=== PATIENT | female | born 1950 | race Hispanic/Latino ===

== ENCOUNTER 2018-01-17 19:08 | Inpatient (IN) | payer MEDICARE, OTHER ==
--- NOTE | 2018-01-17 20:24 | ED PDOC ---
HPI:Nausea, Vomiting, Diarrhea Time Seen by Provider: 01/17/18 20:04 Chief Complaint (Nursing): GI Problem Chief Complaint (Provider): vomiting History Per: Patient History/Exam Limitations: no limitations Onset/Duration Of Symptoms: Days (x3) Current Symptoms Are (Timing): Still Present Additional Complaint(s): 67 year old female with pmHX of DM I, arrives to the emergency department with daughter for an evaluation of vomiting associated with nausea and tactile fever. Patient is currently on Augmentin and Floxin Otic for a left-sided ear infection ongoing for 3 days and had her ear flushed this morning by a doctor which provided some relief. She denies any further medical complaints. Patient reports taking Motrin/Tylenol for ear pain and wears hearing aids bilaterally. PMD: patient is visiting from [place]. Seen by [facility] for ear infection today Past Medical History Reviewed: Historical Data, Nursing Documentation, Vital Signs Vital Signs: Last Vital Signs Temp 98.6 F 01/17/18 19:38 Pulse 97 H 01/17/18 19:38 Resp 20 01/17/18 19:38 BP 136/81 01/17/18 19:38 Pulse Ox 100 01/17/18 19:38 - Medical History PMH: Diabetes (type I) - Surgical History Other surgeries: bilateral eyelids 12/15/17 - Family History Family History: States: Unknown Family Hx - Home Medications Home Medications: Ambulatory Orders Medication Instructions Recorded Amoxicillin/Clavulanate [Augmentin 875 mg PO BID 01/17/18 875 MG-125 MG Tab] Celecoxib [Celebrex] 200 mg PO BID 01/17/18 Citalopram Hydrobromide [Celexa] 20 mg PO DAILY 01/17/18 Hydrocodone/Acetaminophen 1 tab PO PRN PRN 01/17/18 [Hydrocodone-Acetamin 5-325 mg] Lisinopril [Zestril] 10 mg PO DAILY 01/17/18 Loratadine [Claritin] 10 mg PO DAILY 01/17/18 Ofloxacin Otic 0.3% [Floxin 0.3% 5 drop AU BID 01/17/18 Otic Soln] Simvastatin [Zocor] 20 mg PO DAILY 01/17/18 metFORMIN [glucOPHAGE] 500 mg PO BID 01/17/18 - Allergies Allergies/Adverse Reactions: Allergies Allergy/AdvReac Type Severity Reaction Status Date / Time cefprozil [From Cefzil] Allergy VOMITING Verified 01/17/18 19:38 streptomycin Allergy RASH Verified 01/17/18 19:38 Review of Systems ROS Statement: Except As Marked, All Systems Reviewed And Found Negative Constitutional: Positive for: Fever ENT: Positive for: Ear Pain (left) Gastrointestinal: Positive for: Nausea, Vomiting Physical Exam - Reviewed Nursing Documentation Reviewed: Yes Vital Signs Reviewed: Yes - Physical Exam Appears: Positive for: Non-toxic, No Acute Distress Head Exam: Positive for: ATRAUMATIC, NORMAL INSPECTION, NORMOCEPHALIC Skin: Positive for: Normal Color Eye Exam: Positive for: Normal appearance ENT: Positive for: TM Is/Are (blocked on left side), Other (left external canal edema with purulent discharge and tragal tenderness) Neck: Positive for: Normal Cardiovascular/Chest: Positive for: Regular Rate, Rhythm Respiratory: Positive for: Normal Breath Sounds Gastrointestinal/Abdominal: Positive for: Normal Exam, Soft. Negative for: Tenderness Extremity: Positive for: Normal ROM (upper/lower) Neurologic/Psych: Positive for: Alert (x3), Oriented - Laboratory Results Result Diagrams: 01/18/18 05:50 01/18/18 05:50 - ECG O2 Sat by Pulse Oximetry: 100 (RA) Pulse Ox Interpretation: Normal - Progress ED Course And Treament: Time: 2028 --Accucheck: 125 ml/dL Time: 2237 --CT orbits FINDINGS: Orbits: Normal. Globes are unremarkable. Sinuses: Slight mucosal thickening in the left maxillary sinus. No air-fluid levels. Bones/joints: No acute fracture. No bony erosion. No dislocation. Auditory system: There is swelling of the left external auditory canal wall with narrowing of the canal, suggesting otitis externa. There is opacification of the left mastoid air cells and in the left mid ear cavity, suggesting mastoiditis and otitis media. IMPRESSION: There is swelling of the left external auditory canal wall with narrowing of the canal, suggesting otitis externa. There is opacification of the left mastoid air cells and in the left mid ear cavity, suggesting mastoiditis and otitis media. Medical Decision Making Medical Decision Making: Initial Impression: Ear pain; Vomiting Differential Diagnosis: Acute otitis externa r/o mastoiditis; side effect of Augmentin; gastritis Initial Plan: * CT mastoids without contrast * CMP * Lipase * CBC * Accucheck * NS 1,000ml IV per 1,000mls/hr * Zofran 4mg IV * [address] facial report. [address] Ivy the findings. Recommends admission for malignant otitis externa. Recommends IV abx, ID consult, MRI of the canal, and bone spect study. [address] Lott for admission. Scribe Attestation: Documented by Brianda Wood, acting as a scribe for Ed Young MD Provider Scribe Attestation: All medical record entries made by the Scribe were at my direction and personally dictated by me. I have reviewed the chart and agree that the record accurately reflects my personal performance of the history, physical exam, medical decision making, and the department course for this patient. I have also personally directed, reviewed, and agree with the discharge instructions and disposition. Disposition - Clinical Impression Clinical Impression: Malignant otitis externa of left ear - Patient ED Disposition Is Patient to be Admitted: Yes Discussed With : Ras Lott Doctor Will See Patient In The: Hospital Counseled Patient/Family Regarding: Studies Performed, Diagnosis - Disposition Disposition Time: 23:00 Condition: FAIR - Pt Status Changed To: Hospital Disposition Of: Inpatient - Admit Certification Admit to Inpatient:: After my assessment, the patient will require hospitalization for at least two midnights. This is because of the severity of symptoms shown, intensity of services needed, and/or the medical risk in this patient being treated as an outpatient. - POA Present On Arrival: None
[2018-01-17] MEDS ORDERED: Sodium Chloride 0.9% 1,000 ML IV STA (20:26)
[2018-01-17 21:01] LABS: BASO # 0.1 K/uL (0.0-0.2); BASO % 0.4 % (0.0-2.0); EOS # 0.7 K/uL (0.0-0.7); EOS % 4.6 % (0.0-4.0); HEMOGLOBIN 14.1 g/dL (12.0-16.0); LYMPH # 1.4 K/uL (1.0-4.3); LYMPH % 9.7 % (20.0-40.0); MEAN CELL VOLUME 92.1 fl (81.0-99.0); MEAN CORPUSCULAR HEMOGLOBIN 30.8 pg (27.0-31.0); MEAN CORPUSCULAR HGB CONC 33.4 g/dL (33.0-37.0); MEAN PLATELET VOLUME 8.8 fl (7.2-11.7); MONO # 1.1 K/uL (0.0-0.8); MONO % 7.3 % (0.0-10.0); NEUT # 11.5 K/uL (1.8-7.0); PLATELET COUNT 309 K/uL (130-400); RBC 4.57 Mil/uL (3.80-5.20); RED CELL DISTRIBUTION WIDTH 12.9 % (11.5-14.5); WHITE BLOOD COUNT 14.8 K/uL (4.8-10.8)
[2018-01-17 21:14] LABS: ALB/GLOB RATIO 1.4 (1.0-2.1); ALBUMIN 4.9 g/dL (3.5-5.0); ALT/SGPT 29 U/L (9-52); AST/SGOT 26 U/L (14-36); BLOOD UREA NITROGEN 22 mg/dl (7-17); GFR NON-AFRICAN AMERICAN > 60; LIPASE 74 U/L (23-300)
[2018-01-17 22:27] LABS: BANDS 2 % (0-2); EOSINOPHIL 4 % (0-7); LYMPHOCYTE 11 % (20-50); MONOCYTE 7 % (0-10); NEUTROPHIL 76 % (42-75); PLATELET ESTIMATE NORMAL (NORMAL); TOTAL CELLS COUNTED 100
[2018-01-17 22:28] LABS: HYPOCHROMIC SLIGHT; TOXIC GRANULATION PRESENT
[2018-01-17] MEDS ORDERED: Ciprofloxacin 400mg/200ml D5W 400 MG/200 ML BAG IVPB STA (22:45)
[2018-01-17] MEDS ORDERED: Piperacillin/Tazobact 4.5 GM in Sodium Chloride 0.9% 100 ML IVPB STA (22:47)
[2018-01-17] MEDS ORDERED: Piperacillin/Tazobact 3.375 gm Inj IVPB ONE (22:56)
[2018-01-18] MEDS ORDERED: ACETAMINOPHEN PO PRN (00:50)
[2018-01-18] MEDS ORDERED: HYDROCODONE PO PRN (00:50)
[2018-01-18] MEDS: Sodium Chloride 0.9% 1,000 ML IV SCH ×3 (01:22→21:00)
[2018-01-18] MEDS: Piperacillin/Tazobact 3.375 GM in Sodium Chloride 0.9% 100 ML IVPB SCH ×3 (05:00→16:34)
[2018-01-18] MEDS: Oxycodone/Acetaminophen 5/325 mg Tab PO PRN ×2 (05:15→23:37)
[2018-01-18 06:46] LABS: BASO % 0.1 % (0.0-2.0); EOS # 0.9 K/uL (0.0-0.7); HEMOGLOBIN 12.3 g/dL (12.0-16.0); LYMPH # 0.8 K/uL (1.0-4.3); LYMPH % 9.7 % (20.0-40.0); MEAN CELL VOLUME 91.4 fl (81.0-99.0); MEAN CORPUSCULAR HEMOGLOBIN 31.1 pg (27.0-31.0); MEAN PLATELET VOLUME 8.8 fl (7.2-11.7); MONO # 0.4 K/uL (0.0-0.8); MONO % 5.7 % (0.0-10.0); NEUT # 5.8 K/uL (1.8-7.0); NEUT % 73.5 % (50.0-75.0); RBC 3.95 Mil/uL (3.80-5.20); RED CELL DISTRIBUTION WIDTH 12.7 % (11.5-14.5); WHITE BLOOD COUNT 7.9 K/uL (4.8-10.8)
[2018-01-18 07:14] LABS: ALB/GLOB RATIO 1.4 (1.0-2.1); ALBUMIN 3.8 g/dL (3.5-5.0); ALT/SGPT 28 U/L (9-52); AST/SGOT 20 U/L (14-36); BLOOD UREA NITROGEN 17 mg/dl (7-17); CALCIUM 8.6 mg/dL (8.4-10.2); GFR NON-AFRICAN AMERICAN > 60
[2018-01-18] MEDS: OFLOXACIN 0.3% AU SCH ×2 (08:44→16:31)
[2018-01-18] MEDS: Insulin Lispro (humaLOG) 100 Units/ml Inj SC SCH ×4 (08:46→22:19)
[2018-01-18] MEDS: Enoxaparin 40 mg Syringe SC SCH (08:47)
[2018-01-18] MEDS: Ciprofloxacin 400mg/200ml D5W 400 MG/200 ML BAG IVPB SCH ×2 (10:29→20:15)
[2018-01-18] MEDS ORDERED: Gadodiamide 287 MG/ML VIAL (15ML) IV ONE (10:52)
--- NOTE | 2018-01-18 10:55 | CT ---
PROCEDURE: CT scan of the temporal bones without intravenous contrast INDICATION: TECHNIQUE: High resolution axial images of the temporal bones were obtained without intravenous contrast. Coronal and sagittal reformats were generated. This CT exam was performed using one or more of the following dose reduction techniques: Automated exposure control, adjustment of the mA and/or kV according to patient size, and/or use of iterative reconstruction technique. Radiation dose: Total exam DLP = 677.97 mGy-cm. COMPARISON: None. FINDINGS: RIGHT TEMPORAL BONE: External Auditory Canal: The external auditory canal is normal and well aerated. Middle Ear: The tympanic membrane is normal. The middle ear cavity is well aerated. The ossicles are normally formed. The scutum is sharp. There is no dehiscence of the tegmen tympani. The facial nerve follows a normal course. Inner Ear: The cochlea and semicircular canals are normal. Superior and lateral semicircular canals are well covered. The vestibular aqueduct is normal. IAC: The IAC is normal without gross evidence for mass. Mastoids: The mastoid air cells are normally developed and well aerated. The visualized paranasal sinuses and orbits are normal. LEFT TEMPORAL BONE: External Auditory Canal: There is extensive abnormal soft-tissue in the lateral external auditory canal and circumferential soft tissue in the medial external auditory canal with narrowing of the canal lumen. Middle Ear: The tympanic membrane is normal. There is abnormal soft tissue in the middle ear cavity. The ossicles are normally formed. The scutum is sharp. There is no dehiscence of the tegmen tympani. The facial nerve follows a normal course. Inner Ear: The cochlea and semicircular canals are normal. Superior and lateral semicircular canals are well covered. The vestibular aqueduct is normal. IAC: The IAC is normal without gross evidence for mass. Mastoids: The mastoid air cells are normally developed. There is moderate fluid in the mastoid air cells with preservation of the inter mastoid septations. There is a small retention cyst/polyp in the left anterior inferior maxillary sinus. The remaining visualized paranasal sinuses and orbits are normal. IMPRESSION: 1. Findings are compatible with acute and/ left mastoiditis and otitis media. 2. Extensive abnormal soft-tissue completely opacifying the left external auditory canal laterally with severe narrowing of the lumen medially concerning for otitis externa. A preliminary report was provided by [email or web address].
--- NOTE | 2018-01-18 12:49 | MRI ---
Date of service: 01/18/2018 PROCEDURE: MRI OF THE BRAIN AND INTERNAL AUDITORY CANALS WITH AND WITHOUT CONTRAST. HISTORY: left otitis externa COMPARISON: Noncontrast CT from 01/17/2018 TECHNIQUE: Multiplanar, multisequence MR images of the brain and posterior fossa were obtained with and without contrast. High-resolution posterior fossa and images through the cerebellopontine angle and internal auditory canals included: Axial 3-D fiesta, axial T1 pre-and postcontrast enhanced and coronal T1 pre-and postcontrast enhanced. 15 cc Omniscan was injected intravenously. FINDINGS: IAC/CP ANGLES: INTERNAL AUDITORY CANALS: No mass or abnormal enhancement. CEREBELLOPONTINE ANGLES: No mass or abnormal enhancement. INNER EAR STRUCTURES: Normally formed cochlea and semicircular canals. No signal abnormality or abnormal enhancement in the membranous labyrinth of the cochlea, vestibule or the semicircular canals. BRAINSTEM: There is a partially empty sella, otherwise the midline sagittal structures are normal. MASTOIDS: The right mastoid air cells are clear. There is enhancing fluid/soft tissue in the left mastoid air cells. There is also enhancement in the deep soft tissues overlying the left mastoid. There is circumferential enhancing soft tissue in the left external auditory canal with severe narrowing of the canal lumen. OTHER: No other notable findings. BRAIN (LIMITED): There are mild chronic microangiopathic changes. There is no mass, mass effect or abnormal extra-axial fluid collection. There is no territorial infarction. There is a partially empty sella. There is mild age-related global parenchymal volume loss and proportionate enlargement of the ventricles and cortical sulci. There are normal signal voids in the larger intracranial arteries. PARANASAL SINUSES: Clear IMPRESSION: 1. Acute and/ left mastoiditis. 2. Abnormal enhancing circumferential soft tissue in the left external auditory canal with severe narrowing of the canal lumen. Findings are most compatible with acute otitis externa. Underlying neoplasm cannot be entirely excluded. Follow-up after medical management is recommended to ensure complete resolution. 3. Normal MRI appearance of the right mastoid air cells and external auditory canal. 4. Mild chronic microangiopathic changes and mild age-related global parenchymal volume loss.
--- NOTE | 2018-01-18 15:13 | NM ---
Date of service: 01/17/2018 PROCEDURE: Three-phase bone scan Supplemental 3D plana SPECT imaging. HISTORY: Left mastoid inner ear canal infection COMPARISON: January 17, 2018. CT temporal bones. January 18, 2018. MRI brain and internal auditory canals Summary of findings on the comparison examination: Acute left mastoiditis. TECHNIQUE: Following administration of 27.2 miCu of Tc MDP three-phase bone scan attention left base of skull/mastoid air cells performed. FINDINGS: Flow component: Normal with symmetrical flow to the skullbase bilaterally. Blood pool component: Vague increased accumulation of radionuclide in the region of the external auditory canal and mastoid air cells. Delayed images at 3:00: Retention of radionuclide left temporal bone Other findings: None. IMPRESSION: 1. Highly Suspicious findings for acute osseous process left mastoid region. The absence of asymmetric flow on the angiographic component is more likely to reflect imaging capabilities of this region of the skullbase. 2. Accumulation of radionuclide within adjacent soft tissues consistent with external otitis.
--- NOTE | 2018-01-18 22:29 | CON ---
DATE: 01/17/2018 REASON FOR CONSULT: Malignant otitis externa, possible. REQUESTING PHYSICIAN: Ras Lott MD HISTORY OF PRESENT ILLNESS: This is a 67-year-old female with a 4-day history of increasing ear pain on the left, which is constant, [id number] in intensity for four days. She also had hearing loss for one day, constant and moderate in intensity on the left. PAST MEDICAL HISTORY: As noted in the chart by me. MEDICATIONS: As noted in the chart by me. ALLERGIES: NO KNOWN DRUG ALLERGIES. PHYSICAL EXAMINATION: HEAD: Atraumatic and normocephalic. FACE: Good facial movements bilaterally. CONSTITUTIONAL: Well fed, well nourished. COMMUNICATION: Communicates well and appropriately. EXTERNAL NOSE AND EARS: No masses. No lesions. No erythema. No edema. INTERNAL NOSE: Deviated septum. No masses. No lesions. No erythema. No edema. ORAL CAVITY AND OROPHARYNX: No masses. No lesions. No erythema. No edema. LIPS AND GUMS: No masses. No lesions. No erythema. No edema. EARS: Left ear canal is closed due to edema. Therefore, the TM cannot be visualized. NECK: Supple. THYROID: No thyromegaly. No goiter. LYMPH NODES: No lymphadenopathy of the neck. NEUROLOGIC: The patient is alert, awake, and oriented x3. ASSESSMENT: 1. Possible malignant otitis externa. 2. Deviated septum. PLAN: The patient should be on double coverage for pseudomonas. Recommend Infectious Disease followup. Awaiting bone scan and MRI results. Erickson Ivy MD [facility]
[2018-01-19] MEDS: Piperacillin/Tazobact 3.375 GM in Sodium Chloride 0.9% 100 ML IVPB SCH ×5 (00:20→23:13)
--- NOTE | 2018-01-19 02:54 | CON ---
DATE: 01/18/2018 INFECTIOUS DISEASE CONSULT HISTORY OF PRESENT ILLNESS: The patient is a 67-year-old female who has a history of diabetes who was admitted via the emergency room. She came with her daughter for evaluation of vomiting. She thinks, states associated with taking amoxicillin which was given to her by a primary care physician. She is also on Floxin Otic. She was given this medication for left-sided ear infection, which she has had for apparently three to four days. The doctor who had seen her also flushed her ears and said helped somewhat, but she has come to the hospital with fever and some chills and severe ear pain. The patient is apparently visiting the daughter from the [place]. The patient gives history of allergy to streptomycin. MEDICATIONS: Include Celebrex, Celexa, Zestril, Claritin, Zocor, and metformin. ALLERGIES: SHE IS ALLERGIC TO AGAIN I SAID CEFZIL ALSO AND STREPTOMYCIN. PHYSICAL EXAMINATION: GENERAL: She is alert, cooperative, and quite pleasant. She states her ear feels better since being on present medication which is Zosyn, likely meaning that her stomach could not tolerate the Augmentin rather than acute IgM allergic reaction. Has positive ear pain, but again as I stated improved. HEENT: Other than as her left outer ear is markedly erythematous, painful to touch. She also has definite asymmetry of the face, the left facial area being swollen and noted on when she tries to smile. LUNGS: Clear. HEART: Regular sinus rhythm. ABDOMEN: Soft. Positive bowel sounds. EXTREMITIES: No CCE. CT scan showed sinuses to have a slight mucosal thickening in her left maxillary sinus. No air fluid levels. No fraction, no erosion. There is swelling of the left external auditory canal with narrowing of the canal suggesting otitis externa. There is opacification of the left mastoid air cells and in the left mid ear cavity suggesting mastoiditis and otitis media. LABORATORY DATA: No micro available. Creatinine is 0.7, GFR is greater than 60, BUN is 17. White count on 01/17/2018 was 14.8, today it is 7.9. Minimal left shift on 01/17/2018. Her MRI which was done today showed acute left mastoiditis, abnormal enhancing soft tissue in the left external auditory canal with severe narrowing of the canal lumen. Findings are most complete with acute otitis externa. Underlying neoplasm cannot be entirely ruled out. Should have followup. Normal MRI appearance of the right mastoid air cells and external auditory canal. IMPRESSION AND PLAN: At this point in time, the patient has responded somewhat to Zosyn and Cipro. I am concerned that we do not have methicillin-resistant Staphylococcus aureus covered and/or methicillin-susceptible Staphylococcus aureus covered. So, I have added vancomycin to the treatment. We will consider stopping Zosyn, pending tomorrow's findings. The patient is to be seen also by ENT. Kevan Villalta MD
[2018-01-19] MEDS: Sodium Chloride 0.9% 1,000 ML IV SCH (03:48)
[2018-01-19] MEDS: Enoxaparin 40 mg Syringe SC SCH (08:30)
[2018-01-19] MEDS: Insulin Lispro (humaLOG) 100 Units/ml Inj SC SCH ×4 (08:31→22:02)
[2018-01-19] MEDS: OFLOXACIN 0.3% AU SCH ×2 (08:32→16:24)
[2018-01-19] MEDS: Ciprofloxacin 400mg/200ml D5W 400 MG/200 ML BAG IVPB SCH ×2 (08:33→20:11)
[2018-01-19] MEDS: DESONIDE 0.05% TOP SCH (21:18)
[2018-01-19] MEDS: Oxycodone/Acetaminophen 5/325 mg Tab PO PRN (22:43)
[2018-01-20] MEDS: Piperacillin/Tazobact 3.375 GM in Sodium Chloride 0.9% 100 ML IVPB SCH ×3 (04:44→16:26)
[2018-01-20 08:08] VITALS: O2SAT 98
[2018-01-20] MEDS: OFLOXACIN 0.3% AU SCH ×2 (08:34→16:32)
[2018-01-20] MEDS: Insulin Lispro (humaLOG) 100 Units/ml Inj SC SCH ×4 (08:35→22:07)
[2018-01-20] MEDS: Enoxaparin 40 mg Syringe SC SCH (08:35)
[2018-01-20] MEDS: DESONIDE 0.05% TOP SCH ×3 (08:36→16:32)
[2018-01-20] MEDS: Ciprofloxacin 400mg/200ml D5W 400 MG/200 ML BAG IVPB SCH ×2 (09:37→20:43)
--- NOTE | 2018-01-20 09:39 | CP.PCM.HP ---
History of Present Illness - History of Present Illness History of Present Illness: CC: Vomiting/Nausea/Fever and Left Ear Pain History of Present Illness: A 67 year old female with PMHX of DM II arrives to the emergency department with daughter for an evaluation of vomiting associated with nausea and tactile fever. Patient is currently on Augmentin and Floxin Otic for a left-sided ear infection ongoing for 3 days and had her ear flushed this morning by a doctor which provided some relief. She denies any further medical complaints. Patient reports taking Motrin/Tylenol for ear pain and wears hearing aids bilaterally. Failed outpatient treatment for Let Ear Infection. Present on Admission - Present on Admission Any Indicators Present on Admission: Yes History of Uncontrolled Diabetes: Yes Review of Systems - Review of Systems All systems: reviewed and no additional remarkable complaints except - Constitutional Constitutional: Fever - EENT Ears: As Per HPI, Decreased Hearing (Left ear), Ear Pain Past Patient History - Past Medical History & Family History Past Medical History?: Yes Past Family History: Reviewed and not pertinent - Past Social History Smoking Status: Unknown If Ever Smoked Alcohol: None Drugs: Denies - CARDIAC Hx Hypercholesterolemia: Yes Hx Hypertension: Yes - PULMONARY Hx Respiratory Disorders: No - NEUROLOGICAL Hx Neurological Disorder: No - HEENT Other/Comment: hearing impairment uses hearing aids - RENAL Hx Chronic Kidney Disease: No - ENDOCRINE/METABOLIC Hx Diabetes Mellitus Type 2: Yes - HEMATOLOGICAL/ONCOLOGICAL Hx Blood Disorders: No Hx AIDS: No Hx Human Immunodeficiency Virus (HIV): No - INTEGUMENTARY Hx Dermatological Problems: No - MUSCULOSKELETAL/RHEUMATOLOGICAL Hx Arthritis: Yes - GASTROINTESTINAL Hx Gastrointestinal Disorders: No - GENITOURINARY/GYNECOLOGICAL Hx Genitourinary Disorders: No - PSYCHIATRIC Hx Substance Use: No - SURGICAL HISTORY Hx Surgeries: Yes Other/Comment: becky eyelids surgery - ANESTHESIA Hx Anesthesia: Yes Hx Anesthesia Reactions: No Hx Malignant Hyperthermia: No Meds Allergies/Adverse Reactions: Allergies Allergy/AdvReac Type Severity Reaction Status Date / Time cefprozil [From Cefzil] Allergy VOMITING Verified 01/17/18 19:38 streptomycin Allergy RASH Verified 01/17/18 19:38 Physical Exam - Constitutional Appears: Well, No Acute Distress - Head Exam Head Exam: ATRAUMATIC, NORMAL INSPECTION, NORMOCEPHALIC - Eye Exam Eye Exam: EOMI, Normal appearance, PERRL Pupil Exam: NORMAL ACCOMODATION, PERRL - ENT Exam ENT Exam: Mucous Membranes Moist, Normal Exam - Neck Exam Neck exam: Positive for: Full Rom, Normal Inspection - Respiratory Exam Respiratory Exam: Clear to Auscultation Bilateral, NORMAL BREATHING PATTERN - Cardiovascular Exam Cardiovascular Exam: REGULAR RHYTHM, +S1, +S2 - GI/Abdominal Exam GI & Abdominal Exam: Normal Bowel Sounds, Soft. absent: Tenderness - Extremities Exam Extremities exam: Positive for: full ROM, normal capillary refill, normal inspection - Back Exam Back exam: FULL ROM, NORMAL INSPECTION - Neurological Exam Neurological exam: Alert, CN II-XII Intact, Normal Gait, Oriented x3, Reflexes Normal - Psychiatric Exam Psychiatric exam: Normal Affect, Normal Mood - Skin Skin Exam: Dry, Intact, Normal Color, Warm Results - Vital Signs Recent Vital Signs: Last Vital Signs Temp 98.2 F 01/20/18 08:07 Pulse 74 01/20/18 08:32 Resp 20 01/20/18 08:07 BP 107/57 L 01/20/18 08:32 Pulse Ox 98 01/20/18 08:07 - Labs Result Diagrams: 01/18/18 05:50 01/18/18 05:50 Labs: Laboratory Results - last 24 hr 01/19/18 01/19/18 01/19/18 10:49 15:31 21:27 POC Glucose (mg/dL) 123 H 144 H 165 H 01/20/18 05:40 POC Glucose (mg/dL) 94 - Impressions Impression: CT scan of the temporal bones without intravenous contrast INDICATION: TECHNIQUE: High resolution axial images of the temporal bones were obtained without intravenous contrast. Coronal and sagittal reformats were generated. This CT exam was performed using one or more of the following dose reduction techniques: Automated exposure control, adjustment of the mA and/or kV according to patient size, and/or use of iterative reconstruction technique. Radiation dose: Total exam DLP = 677.97 mGy-cm. COMPARISON: None. FINDINGS: RIGHT TEMPORAL BONE: External Auditory Canal: The external auditory canal is normal and well aerated. Middle Ear: The tympanic membrane is normal. The middle ear cavity is well aerated. The ossicles are normally formed. The scutum is sharp. There is no dehiscence of the tegmen tympani. The facial nerve follows a normal course. Inner Ear: The cochlea and semicircular canals are normal. Superior and lateral semicircular canals are well covered. The vestibular aqueduct is normal. IAC: The IAC is normal without gross evidence for mass. Mastoids: The mastoid air cells are normally developed and well aerated. The visualized paranasal sinuses and orbits are normal. LEFT TEMPORAL BONE: External Auditory Canal: There is extensive abnormal soft- tissue in the lateral external auditory canal and circumferential soft tissue in the medial external auditory canal with narrowing of the canal lumen. Middle Ear: The tympanic membrane is normal. There is abnormal soft tissue in the middle ear cavity. The ossicles are normally formed. The scutum is sharp. There is no dehiscence of the tegmen tympani. The facial nerve follows a normal course. Inner Ear: The cochlea and semicircular canals are normal. Superior and lateral semicircular canals are well covered. The vestibular aqueduct is normal. IAC: The IAC is normal without gross evidence for mass. Mastoids: The mastoid air cells are normally developed. There is moderate fluid in the mastoid air cells with preservation of the inter mastoid septations. There is a small retention cyst/polyp in the left anterior inferior maxillary sinus. The remaining visualized paranasal sinuses and orbits are normal. IMPRESSION: 1. Findings are compatible with acute and/ left mastoiditis and otitis media. 2. Extensive abnormal soft-tissue completely opacifying the left external auditory canal laterally with severe narrowing of the lumen medially concerning for otitis externa. A preliminary report was provided by [facility] services. - Imaging and Cardiology MRI Orbit/face/left Ear: Status: Report reviewed by me Additional comment: MRI OF THE BRAIN AND INTERNAL AUDITORY CANALS WITH AND WITHOUT CONTRAST. HISTORY: left otitis externa COMPARISON: Noncontrast CT from 01/17/2018 TECHNIQUE: Multiplanar, multisequence MR images of the brain and posterior fossa were obtained with and without contrast. High-resolution posterior fossa and images through the cerebellopontine angle and internal auditory canals included: Axial 3-D fiesta, axial T1 pre-and postcontrast enhanced and coronal T1 pre-and postcontrast enhanced. 15 cc Omniscan was injected intravenously. FINDINGS: IAC/CP ANGLES: INTERNAL AUDITORY CANALS: No mass or abnormal enhancement. CEREBELLOPONTINE ANGLES: No mass or abnormal enhancement. INNER EAR STRUCTURES: Normally formed cochlea and semicircular canals. No signal abnormality or abnormal enhancement in the membranous labyrinth of the cochlea, vestibule or the semicircular canals. BRAINSTEM: There is a partially empty sella, otherwise the midline sagittal structures are normal. MASTOIDS: The right mastoid air cells are clear. There is enhancing fluid/soft tissue in the left mastoid air cells. There is also enhancement in the deep soft tissues overlying the left mastoid. There is circumferential enhancing soft tissue in the left external auditory canal with severe narrowing of the canal lumen. OTHER: No other notable findings. BRAIN (LIMITED): There are mild chronic microangiopathic changes. There is no mass, mass effect or abnormal extra-axial fluid collection. There is no territorial infarction. There is a partially empty sella. There is mild age-related global parenchymal volume loss and proportionate enlargement of the ventricles and cortical sulci. There are normal signal voids in the larger intracranial arteries. PARANASAL SINUSES: Clear IMPRESSION: 1. Acute and/ left mastoiditis. 2. Abnormal enhancing circumferential soft tissue in the left external auditory canal with severe narrowing of the canal lumen. Findings are most compatible with acute otitis externa. Underlying neoplasm cannot be entirely excluded. Follow-up after medical management is recommended to ensure complete resolution. 3. Normal MRI appearance of the right mastoid air cells and external auditory canal. 4. Mild chronic microangiopathic changes and mild age-related global parenchymal volume loss. Assessment & Plan (1) Malignant otitis externa of left ear Assessment and Plan: Acute Mastoiditis, No Collection IVF IV Zosyn and Vancomycin Ofloxacin Blood Culture ENT on Board ID Consult Pain Medication PRN Status: Acute Priority: High (2) Diabetes mellitus with hyperglycemia Status: Acute (3) Hypotension (arterial) Status: Chronic Priority: Low
--- NOTE | 2018-01-20 09:40 | CP.PCM.PN ---
Subjective - Date & Time of Evaluation Date of Evaluation: 01/19/18 Time of Evaluation: 13:45 - Subjective Subjective: Seen and examined at the bed side. No new complaint. No fever or chills. Objective - Vital Signs/Intake and Output Vital Signs (last 24 hours): Temp Pulse Resp BP Pulse Ox 98.2 F 74 20 107/57 L 98 01/20/18 08:07 01/20/18 08:32 01/20/18 08:07 01/20/18 08:32 01/20/18 08:07 - Medications Medications: Current Medications Atorvastatin Calcium (Lipitor) 10 mg PO DAILY [facility] Last Admin: 01/20/18 08:35 Dose: 10 mg Celecoxib (Celebrex) 200 mg PO BID [facility] Last Admin: 01/20/18 08:31 Dose: 200 mg Citalopram Hydrobromide (Celexa) 20 mg PO DAILY [facility] Last Admin: 01/20/18 08:31 Dose: 20 mg Enoxaparin Sodium (Lovenox) 40 mg SC DAILY [facility] PRN Reason: Protocol Last Admin: 01/20/18 08:35 Dose: 40 mg Home Med (Patient's Own Medication) 1 unit TOP TID [facility] Last Admin: 01/20/18 08:36 Dose: 1 unit Ciprofloxacin (Cipro 400mg/200ml Dsw) 400 mg in 200 mls @ 200 mls/hr IVPB Q12 [facility] PRN Reason: Protocol Last Admin: 01/20/18 09:37 Dose: 200 mls/hr Piperacillin Sod/Tazobactam (Sod 3.375 gm/ Sodium Chloride) 100 mls @ 100 mls/ hr IVPB Q6 [facility] PRN Reason: Protocol Last Admin: 01/20/18 09:36 Dose: 100 mls/hr Vancomycin HCl 1 gm/ Sodium (Chloride) 250 mls @ 166.667 mls/hr IVPB Q12 [facility] PRN Reason: Protocol Last Admin: 01/20/18 08:33 Dose: 166.667 mls/hr Ibuprofen (Motrin Tab) 600 mg PO Q6 PRN PRN Reason: Pain, moderate (4-7) Last Admin: 01/18/18 10:29 Dose: 600 mg Insulin Human Lispro (Humalog) 0 units SC ACHS [facility] PRN Reason: Protocol Last Admin: 01/20/18 08:35 Dose: Not Given Lisinopril (Zestril) 10 mg PO DAILY [facility] Last Admin: 01/20/18 08:32 Dose: 10 mg Loratadine (Claritin) 10 mg PO DAILY [facility] Last Admin: 01/20/18 08:34 Dose: 10 mg Ofloxacin (Floxin 0.3% Otic Soln) 5 drop AU BID [facility] Last Admin: 01/20/18 08:34 Dose: 5 drop Ondansetron HCl (Zofran Inj) 4 mg IVP Q6 PRN PRN Reason: Nausea/Vomiting Oxycodone/Acetaminophen (Percocet 5/325 Mg Tab) 1 tab PO Q6 PRN PRN Reason: Pain, moderate (4-7) Stop: 01/21/18 01:04 Last Admin: 01/19/18 22:43 Dose: 1 tab - Labs Labs: 01/18/18 05:50 01/18/18 05:50 - Constitutional Appears: No Acute Distress - Head Exam Head Exam: ATRAUMATIC, NORMAL INSPECTION, NORMOCEPHALIC - Eye Exam Eye Exam: EOMI, Normal appearance, PERRL Pupil Exam: NORMAL ACCOMODATION, PERRL - Neck Exam Neck Exam: Full ROM, Normal Inspection. absent: Lymphadenopathy - Respiratory Exam Respiratory Exam: Clear to Ausculation Bilateral, NORMAL BREATHING PATTERN - Cardiovascular Exam Cardiovascular Exam: REGULAR RHYTHM, +S1, +S2. absent: Murmur - GI/Abdominal Exam GI & Abdominal Exam: Soft, Normal Bowel Sounds. absent: Tenderness - Extremities Exam Extremities Exam: Normal Capillary Refill - Back Exam Back Exam: NORMAL INSPECTION - Neurological Exam Neurological Exam: Alert, Awake, CN II-XII Intact, Normal Gait, Oriented x3 - Psychiatric Exam Psychiatric exam: Normal Affect, Normal Mood - Skin Skin Exam: Dry, Intact, Normal Color, Warm Assessment and Plan (1) Malignant otitis externa of left ear Assessment & Plan: Acute Mastoiditis, ACte Osteomyelitis No Collection IVF IV Zosyn and Vancomycin Ofloxacin Blood Culture ENT on Board ID Consult Pain Medication PRN Status: Acute Priority: High (2) Diabetes mellitus with hyperglycemia- Improved Status: Acute (3) Hypertension (arterial) Status: Acute (2) Diabetes mellitus with hyperglycemia Status: Chronic (3) Hypertension Status: Chronic
--- NOTE | 2018-01-20 11:43 | CP.PCM.PCO ---
Assessment & Plan - Assessment and Plan (Free Text) Assessment: 67 year old female with pmHX of DM, admitted with nausea, vomiting with Acute Mastoidis pt. feels well this morning, denies h/a , dizziness, or drainge from L ear. Decreased hearing resolved, denies fever, chills, n/v/d As per ID recommendation, continue Zosyn, Cipro, Vanco for 1 more week plan for d/c to TCU f/u with [facility], Above discussed with Seman
[2018-01-20 15:56] VITALS: BP 145/66; PULSE 67; RESP 19; TEMP 97.9
--- NOTE | 2018-01-21 12:51 | CP.PCM.DIS ---
Provider - Provider Date of Admission: 01/17/18 23:05 Attending physician: Ras Lott MD Time Spent in preparation of Discharge (in minutes): 25 Diagnosis - Discharge Diagnosis (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 Priority: High (2) Diabetes mellitus with hyperglycemia Status: Chronic (3) Hypertension Status: Chronic Priority: Low Hospital Course - Lab Results Lab Results: Micro Results 01/18/18 06:08 Blood Blood Culture - Preliminary NO GROWTH AFTER 3 DAYS 01/17/18 23:15 Blood Blood Culture - Preliminary NO GROWTH AFTER 3 DAYS Most Recent Lab Values WBC 7.9 K/uL (4.8-10.8) 01/18/18 05:50 RBC 3.95 Mil/uL (3.80-5.20) 01/18/18 05:50 Hgb 12.3 g/dL (12.0-16.0) 01/18/18 05:50 Hct 36.1 % (34.0-47.0) 01/18/18 05:50 MCV 91.4 fl (81.0-99.0) 01/18/18 05:50 MCH 31.1 pg (27.0-31.0) H 01/18/18 05:50 MCHC 34.0 g/dL (33.0-37.0) 01/18/18 05:50 RDW 12.7 % (11.5-14.5) 01/18/18 05:50 Plt Count 233 K/uL (130-400) 01/18/18 05:50 MPV 8.8 fl (7.2-11.7) 01/18/18 05:50 Neut % (Auto) 73.5 % (50.0-75.0) 01/18/18 05:50 Lymph % (Auto) 9.7 % (20.0-40.0) L 01/18/18 05:50 [place] % (Auto) 5.7 % (0.0-10.0) 01/18/18 05:50 Eos % (Auto) 11.0 % (0.0-4.0) H 01/18/18 05:50 Baso % (Auto) 0.1 % (0.0-2.0) 01/18/18 05:50 Neut # (Auto) 5.8 K/uL (1.8-7.0) 01/18/18 05:50 Lymph # (Auto) 0.8 K/uL (1.0-4.3) L 01/18/18 05:50 Hardeman # (Auto) 0.4 K/uL (0.0-0.8) 01/18/18 05:50 Eos # (Auto) 0.9 K/uL (0.0-0.7) H 01/18/18 05:50 Baso # (Auto) 0.0 K/uL (0.0-0.2) 01/18/18 05:50 Neutrophils % (Manual) 76 % (42-75) H 01/17/18 20:41 Band Neutrophils % 2 % (0-2) 01/17/18 20:41 Lymphocytes % (Manual) 11 % (20-50) L 01/17/18 20:41 Monocytes % (Manual) 7 % (0-10) 01/17/18 20:41 Eosinophils % (Manual) 4 % (0-7) 01/17/18 20:41 Toxic Granulation Present 01/17/18 20:41 Platelet Estimate Normal (NORMAL) 01/17/18 20:41 Hypochromasia (manual) Slight 01/17/18 20:41 ESR 28 mm/hr (0-30) 01/18/18 05:50 Sodium 143 mmol/l (132-148) 01/18/18 05:50 Potassium 3.6 MMOL/L (3.6-5.0) 01/18/18 05:50 Chloride 106 mmol/L (98-107) 01/18/18 05:50 Carbon Dioxide 21 mmol/L (22-30) L 01/18/18 05:50 Anion Gap 20 (10-20) 01/18/18 05:50 BUN 17 mg/dl (7-17) 01/18/18 05:50 Creatinine 0.7 mg/dl (0.7-1.2) 01/18/18 05:50 Est GFR ( Amer) > 60 01/18/18 05:50 Est GFR (Non-Af Amer) > 60 01/18/18 05:50 POC Glucose (mg/dL) 134 mg/dL (65-110) H 01/20/18 21:57 Random Glucose 112 mg/dL (65-105) H 01/18/18 05:50 Calcium 8.6 mg/dL (8.4-10.2) 01/18/18 05:50 Total Bilirubin 1.0 mg/dl (0.2-1.3) 01/18/18 05:50 AST 20 U/L (14-36) 01/18/18 05:50 ALT 28 U/L (9-52) 01/18/18 05:50 Alkaline Phosphatase 57 U/L (38-126) 01/18/18 05:50 Total Protein 6.6 G/DL (6.3-8.2) 01/18/18 05:50 Albumin 3.8 g/dL (3.5-5.0) 01/18/18 05:50 Globulin 2.7 gm/dL (2.2-3.9) 01/18/18 05:50 Albumin/Globulin Ratio 1.4 (1.0-2.1) 01/18/18 05:50 Lipase 74 U/L (23-300) 01/17/18 20:41 Discharge Exam - Head Exam Head Exam: ATRAUMATIC, NORMAL INSPECTION, NORMOCEPHALIC Discharge Plan - Discharge Medications Prescriptions: Ciprofloxacin HCl [Cipro] 500 mg PO Q12 #14 tablet Vancomycin 1 GM [Vancomycin 1GM in Normal Saline Addvantage] 1 gm IVPB Q12 #14 bag Piperacill/Tazo 3.375gm in Dex [Zosyn 3.375 Gm IV Premix] 3.375 gm IV Q6 #24 bag - Follow Up Plan Condition: FAIR Disposition: TRANSF TO SNF Instructions: Ear Infections (Otitis Media) (DC) Referrals: Erickson Ivy MD [Staff Provider] - Kevan Villalta MD [Medical Doctor] - Ras Lott MD [Staff Provider] -
== END 2018-01-20 22:10 | DRG 155 ==
LOC: H.ER 19:08 → H.ERHOLD 23:05 → H.MEDSURG1 01-18 01:16
PROVIDERS: ADMIT Internal Medicine; ATTEND Internal Medicine
DX: H60.22 Malignant otitis externa, left ear (principal); H70.002 Acute mastoiditis without complications, left ear; H60.509 Unspecified acute noninfective otitis externa, unspecified ear; H60.92 Unspecified otitis externa, left ear; H66.90 Otitis media, unspecified, unspecified ear; H91.90 Unspecified hearing loss, unspecified ear; I10 Essential (primary) hypertension; J34.2 Deviated nasal septum; Z79.4 Long term (current) use of insulin; Z97.4 Presence of external hearing-aid; M19.90 Unspecified osteoarthritis, unspecified site; Z79.84 Long term (current) use of oral hypoglycemic drugs; Z79.899 Other long term (current) drug therapy; I95.9 Hypotension, unspecified; E10.65 Type 1 diabetes mellitus with hyperglycemia; E78.00 Pure hypercholesterolemia, unspecified

== ENCOUNTER 2018-01-20 16:32 | Inpatient (IN) | payer OTHER ==
[2018-01-20 22:19] VITALS: BMI 32.4
[2018-01-20] MEDS ORDERED: Glucagon Recombinant 1 mg Inj IM PRN (23:20)
[2018-01-20] MEDS ORDERED: Dextrose 50% SYRINGE Inj (50 ml) IV PRN (23:20)
[2018-01-20] MEDS: Oxycodone/Acetaminophen 5/325 mg Tab PO PRN (23:50)
[2018-01-21] MEDS: Piperacillin/Tazobact 3.375 GM in Sodium Chloride 0.9% 100 ML IVPB SCH ×4 (00:21→18:28)
[2018-01-21] MEDS: Sodium Chloride 0.9% 1,000 ML IV SCH ×2 (04:29→12:41)
[2018-01-21] MEDS: Insulin Lispro (humaLOG) 100 Units/ml Inj SC SCH ×4 (07:06→22:24)
[2018-01-21] MEDS: Enoxaparin 40 mg Syringe SC SCH (08:51)
[2018-01-21] MEDS: DESONIDE 0.05% TOP SCH ×3 (08:57→16:23)
[2018-01-21] MEDS ORDERED: OFLOXACIN 0.3% AU SCH (09:00)
[2018-01-21] MEDS: Ciprofloxacin 400mg/200ml D5W 400 MG/200 ML BAG IVPB SCH ×2 (09:02→21:55)
[2018-01-21] MEDS: Hydrocortisone 2.5% (Rectal) CREAM PR SCH (16:19)
--- NOTE | 2018-01-21 16:19 | CP.PCM.PN ---
Subjective - Date & Time of Evaluation Date of Evaluation: 01/21/18 Time of Evaluation: 16:16 - Subjective Subjective: I D NOTE PATIENT SHOULD BE CONTINUED ON IV ANTIBIOTICS FOR I WEEK Objective - Vital Signs/Intake and Output Vital Signs (last 24 hours): Temp Pulse Resp BP Pulse Ox 97.9 F 61 20 114/50 L 96 01/21/18 07:50 01/21/18 08:52 01/21/18 07:50 01/21/18 08:52 01/21/18 07:50 - Medications Medications: Current Medications Atorvastatin Calcium (Lipitor) 10 mg PO DAILY [facility] Last Admin: 01/21/18 08:52 Dose: 10 mg Celecoxib (Celebrex) 200 mg PO BID [facility] Last Admin: 01/21/18 08:51 Dose: 200 mg Citalopram Hydrobromide (Celexa) 20 mg PO DAILY [facility] Last Admin: 01/21/18 08:52 Dose: 20 mg Dextrose (Dextrose 50% Inj) 0 ml IV STAT PRN; Protocol PRN Reason: Hypoglycemia Protocol Dextrose (Glutose 15) 0 gm PO ONCE PRN; Protocol PRN Reason: Hypoglycemia Protocol Enoxaparin Sodium (Lovenox) 40 mg SC DAILY [facility] PRN Reason: Protocol Last Admin: 01/21/18 08:51 Dose: 40 mg Glucagon (Glucagen Diagnostic Kit) 0 mg IM STAT PRN; Protocol PRN Reason: Hypoglycemia Protocol Home Med (Patient's Own Medication) 1 unit TOP TID [facility] Last Admin: 01/21/18 12:41 Dose: 1 unit Hydrocortisone (Anusol-Hc) 1 applic HI BID [facility] Vancomycin HCl 1 gm/ Sodium (Chloride) 250 mls @ 166.667 mls/hr IVPB Q12@0500, 1700 [facility] PRN Reason: Protocol Last Admin: 01/21/18 04:30 Dose: 166.667 mls/hr Ciprofloxacin (Cipro 400mg/200ml Dsw) 400 mg in 200 mls @ 200 mls/hr IVPB Q12 [facility] PRN Reason: Protocol Last Admin: 01/21/18 09:02 Dose: 200 mls/hr Piperacillin Sod/Tazobactam (Sod 3.375 gm/ Sodium Chloride) 100 mls @ 100 mls/ hr IVPB 0600,1200,1800,0000 [facility] PRN Reason: Protocol Last Admin: 01/21/18 12:00 Dose: 100 mls/hr Ibuprofen (Motrin Tab) 600 mg PO Q6 PRN PRN Reason: Pain, moderate (4-7) Insulin Human Lispro (Humalog) 0 units SC ACCU-CHECK [facility] PRN Reason: Protocol Last Admin: 01/21/18 12:00 Dose: Not Given Lactobacillus Acidophilus (Bacid Acidophilus) 1 cap PO BID [facility] Lisinopril (Zestril) 10 mg PO DAILY [facility] Last Admin: 01/21/18 08:52 Dose: 10 mg Loratadine (Claritin) 10 mg PO DAILY [facility] Last Admin: 01/21/18 08:54 Dose: 10 mg Ofloxacin (Floxin 0.3% Otic Soln) 5 drop AU BID [facility] Last Admin: 01/21/18 08:53 Dose: 5 drop Ondansetron HCl (Zofran Inj) 4 mg IVP Q6 PRN PRN Reason: Nausea/Vomiting Oxycodone/Acetaminophen (Percocet 5/325 Mg Tab) 1 tab PO Q6 PRN PRN Reason: Pain, moderate (4-7) Stop: 01/23/18 23:14 Last Admin: 01/20/18 23:50 Dose: 1 tab
[2018-01-21] MEDS: Lactobacillus Acidophilus 500 MU Cap PO SCH (16:22)
[2018-01-21] MEDS: OFLOXACIN 0.3% AU SCH (21:57)
[2018-01-21] MEDS: Oxycodone/Acetaminophen 5/325 mg Tab PO PRN (22:15)
[2018-01-22] MEDS: Piperacillin/Tazobact 3.375 GM in Sodium Chloride 0.9% 100 ML IVPB SCH ×5 (00:26→23:40)
--- NOTE | 2018-01-22 00:48 | CP.PCM.HP ---
Past Patient History - Past Medical History & Family History Past Medical History?: Yes - Past Social History Smoking Status: Never Smoked - CARDIAC Hx Hypercholesterolemia: Yes Hx Hypertension: Yes - PULMONARY Hx Respiratory Disorders: No - NEUROLOGICAL Hx Neurological Disorder: No - HEENT Other/Comment: hearing impairment uses hearing aids - RENAL Hx Chronic Kidney Disease: No - ENDOCRINE/METABOLIC Hx Diabetes Mellitus Type 2: Yes - HEMATOLOGICAL/ONCOLOGICAL Hx Blood Disorders: No Hx AIDS: No Hx Blood Transfusions: Yes Hx Blood Transfusion Reaction: No Hx Human Immunodeficiency Virus (HIV): No - INTEGUMENTARY Hx Dermatological Problems: No - MUSCULOSKELETAL/RHEUMATOLOGICAL Hx Musculoskeletal Disorders: Yes Hx Arthritis: Yes Hx Falls: No - GASTROINTESTINAL Hx Gastrointestinal Disorders: No - GENITOURINARY/GYNECOLOGICAL Hx Genitourinary Disorders: No - PSYCHIATRIC Hx Substance Use: No - SURGICAL HISTORY Hx Surgeries: Yes Other/Comment: becky eyelids surgery - ANESTHESIA Hx Anesthesia: Yes Hx Anesthesia Reactions: No Hx Malignant Hyperthermia: No Meds Allergies/Adverse Reactions: Allergies Allergy/AdvReac Type Severity Reaction Status Date / Time cefprozil [From Cefzil] Allergy VOMITING Verified 01/25/18 12:35 streptomycin Allergy RASH Verified 01/25/18 12:35 Results - Vital Signs Recent Vital Signs: Last Vital Signs Temp 98.1 F 01/21/18 21:31 Pulse 55 L 01/21/18 21:31 Resp 20 01/21/18 21:31 BP 127/55 L 01/21/18 21:31 Pulse Ox 94 L 01/21/18 21:31 - Labs Result Diagrams: 01/25/18 05:30 01/25/18 05:30 Labs: Laboratory Results - last 24 hr 01/21/18 01/21/18 01/21/18 06:44 10:59 15:53 POC Glucose (mg/dL) 95 149 H 105 Assessment & Plan (1) Malignant otitis externa of left ear Assessment and Plan: Acute Mastoiditis, No Collection IVF IV Zosyn and Vancomycin Ofloxacin Blood Culture ENT on Board ID Consult Pain Medication PRN Status: Acute Priority: High (2) Diabetes mellitus with hyperglycemia-Improved Status: Acute (3) Hypertension (arterial) Status: Acute Priority: High
[2018-01-22] MEDS: Insulin Lispro (humaLOG) 100 Units/ml Inj SC SCH ×4 (06:37→23:24)
[2018-01-22] MEDS: Ciprofloxacin 400mg/200ml D5W 400 MG/200 ML BAG IVPB SCH ×2 (08:59→20:45)
[2018-01-22] MEDS: Lactobacillus Acidophilus 500 MU Cap PO SCH ×2 (09:00→16:20)
[2018-01-22] MEDS ORDERED: Tobramycin 0.3% OPH OINT OU SCH (09:00)
[2018-01-22] MEDS: Hydrocortisone 2.5% (Rectal) CREAM PR SCH ×2 (09:00→16:20)
[2018-01-22] MEDS: Enoxaparin 40 mg Syringe SC SCH (09:01)
[2018-01-22] MEDS: OFLOXACIN 0.3% AU SCH ×2 (09:01→20:51)
[2018-01-22] MEDS: DESONIDE 0.05% TOP SCH ×3 (09:01→16:25)
[2018-01-22] MEDS ORDERED: Tuberculin 5 Units/0.1 ml Inj ID ONE (18:22)
--- NOTE | 2018-01-22 23:19 | CP.PCM.PN ---
Subjective - Date & Time of Evaluation Date of Evaluation: 01/22/18 Time of Evaluation: 19:35 Objective - Vital Signs/Intake and Output Vital Signs (last 24 hours): Temp Pulse Resp BP Pulse Ox 98.2 F 57 L 20 132/70 97 01/22/18 19:50 01/22/18 19:50 01/22/18 19:50 01/22/18 19:50 01/22/18 19:50 - Medications Medications: Current Medications Atorvastatin Calcium (Lipitor) 10 mg PO DAILY [facility] Last Admin: 01/22/18 09:01 Dose: 10 mg Celecoxib (Celebrex) 200 mg PO BID [facility] Last Admin: 01/22/18 16:21 Dose: 200 mg Citalopram Hydrobromide (Celexa) 20 mg PO DAILY [facility] Last Admin: 01/22/18 09:00 Dose: 20 mg Dextrose (Dextrose 50% Inj) 0 ml IV STAT PRN; Protocol PRN Reason: Hypoglycemia Protocol Dextrose (Glutose 15) 0 gm PO ONCE PRN; Protocol PRN Reason: Hypoglycemia Protocol Enoxaparin Sodium (Lovenox) 40 mg SC DAILY [facility] PRN Reason: Protocol Last Admin: 01/22/18 09:01 Dose: 40 mg Glucagon (Glucagen Diagnostic Kit) 0 mg IM STAT PRN; Protocol PRN Reason: Hypoglycemia Protocol Home Med (Patient's Own Medication) 1 unit TOP TID [facility] Last Admin: 01/22/18 16:25 Dose: 1 unit Hydrocortisone (Anusol-Hc) 1 applic [place] BID [facility] Last Admin: 01/22/18 16:20 Dose: 1 applic Vancomycin HCl 1 gm/ Sodium (Chloride) 250 mls @ 166.667 mls/hr IVPB Q12@0500, 1700 [facility] PRN Reason: Protocol Last Admin: 01/22/18 16:26 Dose: 166.667 mls/hr Ciprofloxacin (Cipro 400mg/200ml Dsw) 400 mg in 200 mls @ 200 mls/hr IVPB Q12 [facility] PRN Reason: Protocol Last Admin: 01/22/18 20:45 Dose: 200 mls/hr Piperacillin Sod/Tazobactam (Sod 3.375 gm/ Sodium Chloride) 100 mls @ 100 mls/ hr IVPB 0600,1200,1800,0000 [facility] PRN Reason: Protocol Last Admin: 01/22/18 18:36 Dose: 100 mls/hr Ibuprofen (Motrin Tab) 600 mg PO Q6 PRN PRN Reason: Pain, moderate (4-7) Insulin Human Lispro (Humalog) 0 units SC ACCU-CHECK [facility] PRN Reason: Protocol Last Admin: 01/22/18 16:25 Dose: Not Given Lactobacillus Acidophilus (Bacid Acidophilus) 1 cap PO BID [facility] Last Admin: 01/22/18 16:20 Dose: 1 cap Lisinopril (Zestril) 10 mg PO DAILY [facility] Last Admin: 01/22/18 09:01 Dose: 10 mg Loratadine (Claritin) 10 mg PO DAILY [facility] Last Admin: 01/22/18 09:00 Dose: 10 mg Ofloxacin (Floxin 0.3% Otic Soln) 5 drop AU BID@0900,2100 [facility] Last Admin: 01/22/18 20:51 Dose: 5 drop Ondansetron HCl (Zofran Inj) 4 mg IVP Q6 PRN PRN Reason: Nausea/Vomiting Oxycodone/Acetaminophen (Percocet 5/325 Mg Tab) 1 tab PO Q6 PRN PRN Reason: Pain, moderate (4-7) Stop: 01/23/18 23:14 Last Admin: 01/21/18 22:15 Dose: 1 tab Assessment and Plan (1) Malignant otitis externa of left ear Assessment & Plan: Acute Mastoiditis Status: Acute (2) Diabetes mellitus with hyperglycemia Status: Acute
[2018-01-23] MEDS: Piperacillin/Tazobact 3.375 GM in Sodium Chloride 0.9% 100 ML IVPB SCH ×3 (06:17→17:29)
[2018-01-23] MEDS: Insulin Lispro (humaLOG) 100 Units/ml Inj SC SCH ×4 (06:24→23:03)
[2018-01-23] MEDS: OFLOXACIN 0.3% AU SCH ×2 (08:45→21:54)
[2018-01-23] MEDS: Enoxaparin 40 mg Syringe SC SCH (08:45)
[2018-01-23] MEDS: DESONIDE 0.05% TOP SCH ×3 (08:45→16:14)
[2018-01-23] MEDS: Hydrocortisone 2.5% (Rectal) CREAM PR SCH ×2 (08:46→16:12)
[2018-01-23] MEDS: Lactobacillus Acidophilus 500 MU Cap PO SCH ×2 (08:46→16:14)
[2018-01-23] MEDS: Ciprofloxacin 400mg/200ml D5W 400 MG/200 ML BAG IVPB SCH ×2 (08:47→21:53)
[2018-01-24] MEDS: Piperacillin/Tazobact 3.375 GM in Sodium Chloride 0.9% 100 ML IVPB SCH ×3 (00:43→11:05)
[2018-01-24] MEDS: Insulin Lispro (humaLOG) 100 Units/ml Inj SC SCH ×4 (06:36→23:56)
[2018-01-24] MEDS: Lactobacillus Acidophilus 500 MU Cap PO SCH ×2 (08:31→16:10)
[2018-01-24] MEDS: Ciprofloxacin 400mg/200ml D5W 400 MG/200 ML BAG IVPB SCH ×2 (08:31→21:08)
[2018-01-24] MEDS: DESONIDE 0.05% TOP SCH ×3 (08:32→16:13)
[2018-01-24] MEDS: OFLOXACIN 0.3% AU SCH ×2 (08:32→21:10)
[2018-01-24] MEDS: Enoxaparin 40 mg Syringe SC SCH (08:32)
[2018-01-24] MEDS: Hydrocortisone 2.5% (Rectal) CREAM PR SCH ×2 (08:34→16:01)
[2018-01-25 06:43] LABS: INR 1.1; PROTHROMBIN TIME 11.8 Seconds (9.8-13.1)
[2018-01-25 06:47] LABS: BASO % 0.4 % (0.0-2.0); EOS # 1.4 K/uL (0.0-0.7); EOS % 12.3 % (0.0-4.0); HEMOGLOBIN 11.9 g/dL (12.0-16.0); LYMPH # 3.3 K/uL (1.0-4.3); LYMPH % 29.5 % (20.0-40.0); MEAN CELL VOLUME 92.2 fl (81.0-99.0); MEAN CORPUSCULAR HEMOGLOBIN 30.4 pg (27.0-31.0); MEAN CORPUSCULAR HGB CONC 32.9 g/dL (33.0-37.0); MEAN PLATELET VOLUME 8.5 fl (7.2-11.7); MONO % 8.9 % (0.0-10.0); NEUT # 5.5 K/uL (1.8-7.0); NEUT % 48.9 % (50.0-75.0); NRBC % 0.1 % (0.0-0.0); RBC 3.93 Mil/uL (3.80-5.20); RED CELL DISTRIBUTION WIDTH 12.7 % (11.5-14.5); WHITE BLOOD COUNT 11.2 K/uL (4.8-10.8)
[2018-01-25 07:02] LABS: PARTIAL THROMBOPLASTIN TIME 34.1 Seconds (25.6-37.1)
[2018-01-25 07:21] LABS: ALB/GLOB RATIO 1.3 (1.0-2.1); ALBUMIN 3.8 g/dL (3.5-5.0); ALT/SGPT 66 U/L (9-52); AST/SGOT 68 U/L (14-36); BLOOD UREA NITROGEN 13 mg/dl (7-17); CALCIUM 9.1 mg/dL (8.4-10.2); GFR AFRICAN-AMERICAN > 60; GFR NON-AFRICAN AMERICAN > 60
[2018-01-25] MEDS: Lactobacillus Acidophilus 500 MU Cap PO SCH ×2 (08:35→17:17)
[2018-01-25] MEDS: OFLOXACIN 0.3% AU SCH ×2 (08:36→20:49)
[2018-01-25] MEDS: DESONIDE 0.05% TOP SCH ×3 (08:38→17:20)
[2018-01-25] MEDS: Hydrocortisone 2.5% (Rectal) CREAM PR SCH ×2 (08:39→17:32)
[2018-01-25] MEDS: Ciprofloxacin 400mg/200ml D5W 400 MG/200 ML BAG IVPB SCH (08:40)
[2018-01-25] MEDS: Insulin Lispro (humaLOG) 100 Units/ml Inj SC SCH ×4 (08:41→23:45)
--- NOTE | 2018-01-25 10:14 | CP.PCM.PN ---
Subjective - Date & Time of Evaluation Date of Evaluation: 01/23/18 Time of Evaluation: 17:00 Objective - Vital Signs/Intake and Output Vital Signs (last 24 hours): Temp Pulse Resp BP Pulse Ox 97.8 F 72 20 144/76 99 01/25/18 07:38 01/25/18 08:37 01/25/18 07:38 01/25/18 08:37 01/25/18 07:38 - Medications Medications: Current Medications Atorvastatin Calcium (Lipitor) 10 mg PO DAILY [facility] Last Admin: 01/25/18 08:37 Dose: 10 mg Celecoxib (Celebrex) 200 mg PO BID [facility] Last Admin: 01/25/18 08:36 Dose: 200 mg Citalopram Hydrobromide (Celexa) 20 mg PO DAILY [facility] Last Admin: 01/25/18 08:39 Dose: 20 mg Dextrose (Dextrose 50% Inj) 0 ml IV STAT PRN; Protocol PRN Reason: Hypoglycemia Protocol Dextrose (Glutose 15) 0 gm PO ONCE PRN; Protocol PRN Reason: Hypoglycemia Protocol Enoxaparin Sodium (Lovenox) 40 mg SC DAILY [facility] PRN Reason: Protocol Last Admin: 01/24/18 08:32 Dose: 40 mg Glucagon (Glucagen Diagnostic Kit) 0 mg IM STAT PRN; Protocol PRN Reason: Hypoglycemia Protocol Home Med (Patient's Own Medication) 1 unit TOP TID [facility] Last Admin: 01/25/18 08:38 Dose: Not Given Hydrocortisone (Anusol-Hc) 1 applic [place] BID [facility] Last Admin: 01/25/18 08:39 Dose: 1 applic Vancomycin HCl 1 gm/ Sodium (Chloride) 250 mls @ 166.667 mls/hr IVPB Q12@0500, 1700 [facility] PRN Reason: Protocol Last Admin: 01/25/18 05:39 Dose: 166.667 mls/hr Ciprofloxacin (Cipro 400mg/200ml Dsw) 400 mg in 200 mls @ 200 mls/hr IVPB Q12 [facility] PRN Reason: Protocol Last Admin: 01/25/18 08:40 Dose: 200 mls/hr Ibuprofen (Motrin Tab) 600 mg PO Q6 PRN PRN Reason: Pain, moderate (4-7) Insulin Human Lispro (Humalog) 0 units SC ACCU-CHECK [facility] PRN Reason: Protocol Last Admin: 01/25/18 08:41 Dose: Not Given Lactobacillus Acidophilus (Bacid Acidophilus) 1 cap PO BID [facility] Last Admin: 01/25/18 08:35 Dose: 1 cap Lisinopril (Zestril) 10 mg PO DAILY [facility] Last Admin: 01/25/18 08:37 Dose: 10 mg Loratadine (Claritin) 10 mg PO DAILY [facility] Last Admin: 01/25/18 08:39 Dose: 10 mg Nystatin (Nystop Topical Powder) 1 applic TOP 0900,1200,2100 [facility] Last Admin: 01/25/18 08:53 Dose: 1 u Ofloxacin (Floxin 0.3% Otic Soln) 5 drop AU BID@0900,2100 [facility] Last Admin: 01/25/18 08:36 Dose: 5 drop Ondansetron HCl (Zofran Inj) 4 mg IVP Q6 PRN PRN Reason: Nausea/Vomiting - Labs Labs: 01/25/18 05:30 01/25/18 05:30 PT 11.8 Seconds (9.8-13.1) 01/25/18 05:30 INR 1.1 01/25/18 05:30 APTT 34.1 Seconds (25.6-37.1) 01/25/18 05:30 Assessment and Plan (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
--- NOTE | 2018-01-25 10:14 | CP.PCM.PN ---
Subjective - Date & Time of Evaluation Date of Evaluation: 01/24/18 Time of Evaluation: 19:15 Objective - Vital Signs/Intake and Output Vital Signs (last 24 hours): Temp Pulse Resp BP Pulse Ox 97.8 F 72 20 144/76 99 01/25/18 07:38 01/25/18 08:37 01/25/18 07:38 01/25/18 08:37 01/25/18 07:38 - Medications Medications: Current Medications Atorvastatin Calcium (Lipitor) 10 mg PO DAILY [facility] Last Admin: 01/25/18 08:37 Dose: 10 mg Celecoxib (Celebrex) 200 mg PO BID [facility] Last Admin: 01/25/18 08:36 Dose: 200 mg Citalopram Hydrobromide (Celexa) 20 mg PO DAILY [facility] Last Admin: 01/25/18 08:39 Dose: 20 mg Dextrose (Dextrose 50% Inj) 0 ml IV STAT PRN; Protocol PRN Reason: Hypoglycemia Protocol Dextrose (Glutose 15) 0 gm PO ONCE PRN; Protocol PRN Reason: Hypoglycemia Protocol Enoxaparin Sodium (Lovenox) 40 mg SC DAILY [facility] PRN Reason: Protocol Last Admin: 01/24/18 08:32 Dose: 40 mg Glucagon (Glucagen Diagnostic Kit) 0 mg IM STAT PRN; Protocol PRN Reason: Hypoglycemia Protocol Home Med (Patient's Own Medication) 1 unit TOP TID [facility] Last Admin: 01/25/18 08:38 Dose: Not Given Hydrocortisone (Anusol-Hc) 1 applic [place] BID [facility] Last Admin: 01/25/18 08:39 Dose: 1 applic Vancomycin HCl 1 gm/ Sodium (Chloride) 250 mls @ 166.667 mls/hr IVPB Q12@0500, 1700 [facility] PRN Reason: Protocol Last Admin: 01/25/18 05:39 Dose: 166.667 mls/hr Ciprofloxacin (Cipro 400mg/200ml Dsw) 400 mg in 200 mls @ 200 mls/hr IVPB Q12 [facility] PRN Reason: Protocol Last Admin: 01/25/18 08:40 Dose: 200 mls/hr Ibuprofen (Motrin Tab) 600 mg PO Q6 PRN PRN Reason: Pain, moderate (4-7) Insulin Human Lispro (Humalog) 0 units SC ACCU-CHECK [facility] PRN Reason: Protocol Last Admin: 01/25/18 08:41 Dose: Not Given Lactobacillus Acidophilus (Bacid Acidophilus) 1 cap PO BID [facility] Last Admin: 01/25/18 08:35 Dose: 1 cap Lisinopril (Zestril) 10 mg PO DAILY [facility] Last Admin: 01/25/18 08:37 Dose: 10 mg Loratadine (Claritin) 10 mg PO DAILY [facility] Last Admin: 01/25/18 08:39 Dose: 10 mg Nystatin (Nystop Topical Powder) 1 applic TOP 0900,1200,2100 [facility] Last Admin: 01/25/18 08:53 Dose: 1 u Ofloxacin (Floxin 0.3% Otic Soln) 5 drop AU BID@0900,2100 [facility] Last Admin: 01/25/18 08:36 Dose: 5 drop Ondansetron HCl (Zofran Inj) 4 mg IVP Q6 PRN PRN Reason: Nausea/Vomiting - Labs Labs: 01/25/18 05:30 01/25/18 05:30 PT 11.8 Seconds (9.8-13.1) 01/25/18 05:30 INR 1.1 01/25/18 05:30 APTT 34.1 Seconds (25.6-37.1) 01/25/18 05:30 Assessment and Plan (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
[2018-01-25] MEDS: Enoxaparin 40 mg Syringe SC SCH (17:20)
[2018-01-25] MEDS ORDERED: DiphenhydrAMINE 50 mg/ml Inj IVP PRN (17:53)
[2018-01-25] MEDS ORDERED: methylPREDNISolone 40 MG in Sodium Chloride 0.9% 50 ML IVPB ONE (19:44)
[2018-01-25] MEDS ORDERED: MethylPREDNISolone 40 mg Vial IVP ONE (20:30)
--- NOTE | 2018-01-26 01:44 | CP.PCM.PN ---
Subjective - Date & Time of Evaluation Date of Evaluation: 01/25/18 Time of Evaluation: 13:10 Objective - Vital Signs/Intake and Output Vital Signs (last 24 hours): Temp Pulse Resp BP Pulse Ox 97.7 F 63 20 151/82 H 99 01/25/18 21:06 01/25/18 21:06 01/25/18 21:06 01/25/18 21:06 01/25/18 21:06 - Medications Medications: Current Medications Atorvastatin Calcium (Lipitor) 10 mg PO DAILY [facility] Last Admin: 01/25/18 08:37 Dose: 10 mg Celecoxib (Celebrex) 200 mg PO BID [facility] Last Admin: 01/25/18 17:18 Dose: 200 mg Citalopram Hydrobromide (Celexa) 20 mg PO DAILY [facility] Last Admin: 01/25/18 08:39 Dose: 20 mg Dextrose (Dextrose 50% Inj) 0 ml IV STAT PRN; Protocol PRN Reason: Hypoglycemia Protocol Dextrose (Glutose 15) 0 gm PO ONCE PRN; Protocol PRN Reason: Hypoglycemia Protocol Diphenhydramine HCl (Benadryl) 25 mg IVP Q6 PRN PRN Reason: Itching / Pruritus Last Admin: 01/25/18 20:44 Dose: 25 mg Enoxaparin Sodium (Lovenox) 40 mg SC DAILY [facility] PRN Reason: Protocol Last Admin: 01/25/18 17:20 Dose: 40 mg Glucagon (Glucagen Diagnostic Kit) 0 mg IM STAT PRN; Protocol PRN Reason: Hypoglycemia Protocol Home Med (Patient's Own Medication) 1 unit TOP TID [facility] Last Admin: 01/25/18 17:20 Dose: Not Given Hydrocortisone (Anusol-Hc) 1 applic [place] BID [facility] Last Admin: 01/25/18 17:32 Dose: 1 applic Vancomycin HCl 1 gm/ Sodium (Chloride) 250 mls @ 166.667 mls/hr IVPB Q12@0500, 1700 [facility] PRN Reason: Protocol Last Admin: 01/25/18 17:20 Dose: 166.667 mls/hr Ciprofloxacin (Cipro 400mg/200ml Dsw) 400 mg in 200 mls @ 200 mls/hr IVPB Q12 [facility] PRN Reason: Protocol Last Admin: 01/25/18 08:40 Dose: 200 mls/hr Ibuprofen (Motrin Tab) 600 mg PO Q6 PRN PRN Reason: Pain, moderate (4-7) Insulin Human Lispro (Humalog) 0 units SC ACCU-CHECK [facility] PRN Reason: Protocol Last Admin: 01/25/18 23:45 Dose: Not Given Lactobacillus Acidophilus (Bacid Acidophilus) 1 cap PO BID [facility] Last Admin: 01/25/18 17:17 Dose: 1 cap Lisinopril (Zestril) 10 mg PO DAILY [facility] Last Admin: 01/25/18 08:37 Dose: 10 mg Loratadine (Claritin) 10 mg PO DAILY [facility] Last Admin: 01/25/18 08:39 Dose: 10 mg Nystatin (Nystop Topical Powder) 1 applic TOP 0900,1200,2100 [facility] Last Admin: 01/25/18 20:56 Dose: 1 u Ofloxacin (Floxin 0.3% Otic Soln) 5 drop AU BID@0900,2100 [facility] Last Admin: 01/25/18 20:49 Dose: 5 drop Ondansetron HCl (Zofran Inj) 4 mg IVP Q6 PRN PRN Reason: Nausea/Vomiting - Labs Labs: 01/25/18 05:30 01/25/18 05:30 PT 11.8 Seconds (9.8-13.1) 01/25/18 05:30 INR 1.1 01/25/18 05:30 APTT 34.1 Seconds (25.6-37.1) 01/25/18 05:30 Assessment and Plan (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
[2018-01-26] MEDS: Insulin Lispro (humaLOG) 100 Units/ml Inj SC SCH ×3 (07:06→22:49)
[2018-01-26] MEDS: Lactobacillus Acidophilus 500 MU Cap PO SCH ×2 (08:41→16:13)
[2018-01-26] MEDS: Enoxaparin 40 mg Syringe SC SCH (08:42)
[2018-01-26] MEDS: OFLOXACIN 0.3% AU SCH ×2 (08:45→22:48)
[2018-01-26] MEDS: DESONIDE 0.05% TOP SCH ×3 (08:46→16:16)
[2018-01-26] MEDS: Hydrocortisone 2.5% (Rectal) CREAM PR SCH ×2 (09:00→16:13)
[2018-01-26] MEDS: MethylPREDNISolone 40 mg Vial IVP SCH ×2 (13:18→22:51)
--- NOTE | 2018-01-26 17:27 | CP.PCM.PN ---
Subjective - Date & Time of Evaluation Date of Evaluation: 01/26/18 Time of Evaluation: 12:45 - Subjective Subjective: Seen and examined at the bed side. +Body rashes to the Trunk, Extremities and Face. She was given IV Solumedrol and Benadryl, and has improved. Earache and discharge has subsided. S/P PICC Line. Objective - Vital Signs/Intake and Output Vital Signs (last 24 hours): Temp Pulse Resp BP Pulse Ox 98.2 F 64 20 144/73 95 01/26/18 16:33 01/26/18 16:33 01/26/18 16:33 01/26/18 16:33 01/26/18 16:33 - Medications Medications: Current Medications Atorvastatin Calcium (Lipitor) 10 mg PO DAILY [facility] Last Admin: 01/26/18 08:44 Dose: 10 mg Celecoxib (Celebrex) 200 mg PO BID [facility] Last Admin: 01/26/18 16:13 Dose: 200 mg Citalopram Hydrobromide (Celexa) 20 mg PO DAILY [facility] Last Admin: 01/26/18 08:45 Dose: 20 mg Dextrose (Dextrose 50% Inj) 0 ml IV STAT PRN; Protocol PRN Reason: Hypoglycemia Protocol Dextrose (Glutose 15) 0 gm PO ONCE PRN; Protocol PRN Reason: Hypoglycemia Protocol Diphenhydramine HCl (Benadryl) 25 mg IVP Q6 PRN PRN Reason: Itching / Pruritus Last Admin: 01/25/18 20:44 Dose: 25 mg Diphenhydramine HCl (Benadryl) 50 mg PO TID PRN PRN Reason: Itching / Pruritus Last Admin: 01/26/18 10:24 Dose: 50 mg Enoxaparin Sodium (Lovenox) 40 mg SC DAILY [facility] PRN Reason: Protocol Last Admin: 01/26/18 08:42 Dose: 40 mg Glucagon (Glucagen Diagnostic Kit) 0 mg IM STAT PRN; Protocol PRN Reason: Hypoglycemia Protocol Home Med (Patient's Own Medication) 1 unit TOP TID [facility] Last Admin: 01/26/18 16:16 Dose: Not Given Hydrocortisone (Anusol-Hc) 1 applic [place] BID [facility] Last Admin: 01/26/18 16:13 Dose: Not Given Vancomycin HCl 1 gm/ Sodium (Chloride) 250 mls @ 166.667 mls/hr IVPB Q12@0500, 1700 [facility] PRN Reason: Protocol Last Admin: 01/25/18 17:20 Dose: 166.667 mls/hr Ciprofloxacin (Cipro 400mg/200ml Dsw) 400 mg in 200 mls @ 200 mls/hr IVPB Q12 [facility] PRN Reason: Protocol Last Admin: 01/25/18 08:40 Dose: 200 mls/hr Ibuprofen (Motrin Tab) 600 mg PO Q6 PRN PRN Reason: Pain, moderate (4-7) Insulin Human Lispro (Humalog) 0 units SC ACCU-CHECK [facility] PRN Reason: Protocol Last Admin: 01/26/18 12:00 Dose: Not Given Lactobacillus Acidophilus (Bacid Acidophilus) 1 cap PO BID [facility] Last Admin: 01/26/18 16:13 Dose: 1 cap Lisinopril (Zestril) 10 mg PO DAILY [facility] Last Admin: 01/26/18 08:44 Dose: 10 mg Loratadine (Claritin) 10 mg PO DAILY [facility] Last Admin: 01/26/18 08:44 Dose: 10 mg Methylprednisolone (Solu-Medrol) 40 mg IVP Q12 [facility] Stop: 01/27/18 21:01 Last Admin: 01/26/18 13:18 Dose: 40 mg Nystatin (Nystop Topical Powder) 1 applic TOP 0900,1200,2100 [facility] Last Admin: 01/26/18 12:00 Dose: 1 u Ofloxacin (Floxin 0.3% Otic Soln) 5 drop AU BID@0900,2100 [facility] Last Admin: 01/26/18 08:45 Dose: 5 drop Ondansetron HCl (Zofran Inj) 4 mg IVP Q6 PRN PRN Reason: Nausea/Vomiting - Labs Labs: 01/25/18 05:30 01/25/18 05:30 PT 11.8 Seconds (9.8-13.1) 01/25/18 05:30 INR 1.1 01/25/18 05:30 APTT 34.1 Seconds (25.6-37.1) 01/25/18 05:30 - Constitutional Appears: Well, No Acute Distress - Head Exam Head Exam: ATRAUMATIC, NORMAL INSPECTION, NORMOCEPHALIC - Eye Exam Eye Exam: EOMI, Normal appearance, PERRL Pupil Exam: NORMAL ACCOMODATION, PERRL - ENT Exam ENT Exam: Mucous Membranes Moist, Normal Exam - Neck Exam Neck Exam: Full ROM, Normal Inspection. absent: Lymphadenopathy - Respiratory Exam Respiratory Exam: Clear to Ausculation Bilateral, NORMAL BREATHING PATTERN - Cardiovascular Exam Cardiovascular Exam: REGULAR RHYTHM, +S1, +S2. absent: Murmur - GI/Abdominal Exam GI & Abdominal Exam: Soft, Normal Bowel Sounds. absent: Tenderness - Extremities Exam Extremities Exam: Full ROM, Normal Capillary Refill, Normal Inspection. 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 ENT and ID Onboard Status: Acute (2) Diabetes mellitus with hyperglycemia Status: Chronic
--- NOTE | 2018-01-26 22:48 | CP.PCM.PN ---
Subjective - Date & Time of Evaluation Date of Evaluation: 01/26/18 Time of Evaluation: 22:36 - Subjective Subjective: I D NOTE PATIENT RASH IMPROVING ON IV SOLUMEDROL WAS CONSIDERING RX c PO ZYVOX BUT HAS REACTION c CELEXA. WILL BE DIFFICULT TO RX IS ALLERGIC TO CEPHALOSPORINS(GI REACTION) HAVE ORDERED ERTAPENEM TO START ON TUESDAY PRECEDED BY SOLUMEDROL WILL EVALUATE FOR [employer] COVERAGE TOMORROW Objective - Vital Signs/Intake and Output Vital Signs (last 24 hours): Temp Pulse Resp BP Pulse Ox 97.7 F 69 20 151/72 H 97 01/26/18 21:29 01/26/18 21:29 01/26/18 21:29 01/26/18 21:29 01/26/18 21:29 - Medications Medications: Current Medications Atorvastatin Calcium (Lipitor) 10 mg PO DAILY [facility] Last Admin: 01/26/18 08:44 Dose: 10 mg Celecoxib (Celebrex) 200 mg PO BID [facility] Last Admin: 01/26/18 16:13 Dose: 200 mg Citalopram Hydrobromide (Celexa) 20 mg PO DAILY [facility] Last Admin: 01/26/18 08:45 Dose: 20 mg Dextrose (Dextrose 50% Inj) 0 ml IV STAT PRN; Protocol PRN Reason: Hypoglycemia Protocol Dextrose (Glutose 15) 0 gm PO ONCE PRN; Protocol PRN Reason: Hypoglycemia Protocol Diphenhydramine HCl (Benadryl) 25 mg IVP Q6 PRN PRN Reason: Itching / Pruritus Last Admin: 01/25/18 20:44 Dose: 25 mg Diphenhydramine HCl (Benadryl) 50 mg PO TID PRN PRN Reason: Itching / Pruritus Last Admin: 01/26/18 10:24 Dose: 50 mg Enoxaparin Sodium (Lovenox) 40 mg SC DAILY [facility] PRN Reason: Protocol Last Admin: 01/26/18 08:42 Dose: 40 mg Glucagon (Glucagen Diagnostic Kit) 0 mg IM STAT PRN; Protocol PRN Reason: Hypoglycemia Protocol Home Med (Patient's Own Medication) 1 unit TOP TID [facility] Last Admin: 01/26/18 16:16 Dose: Not Given Hydrocortisone (Anusol-Hc) 1 applic [place] BID [facility] Last Admin: 01/26/18 16:13 Dose: Not Given Ertapenem 1 gm/ Sodium (Chloride) 100 mls @ 100 mls/hr IVPB DAILY [facility] PRN Reason: Protocol Ibuprofen (Motrin Tab) 600 mg PO Q6 PRN PRN Reason: Pain, moderate (4-7) Insulin Human Lispro (Humalog) 0 units SC ACCU-CHECK [facility] PRN Reason: Protocol Last Admin: 01/26/18 12:00 Dose: Not Given Lactobacillus Acidophilus (Bacid Acidophilus) 1 cap PO BID [facility] Last Admin: 01/26/18 16:13 Dose: 1 cap Lisinopril (Zestril) 10 mg PO DAILY [facility] Last Admin: 01/26/18 08:44 Dose: 10 mg Loratadine (Claritin) 10 mg PO DAILY [facility] Last Admin: 01/26/18 08:44 Dose: 10 mg Methylprednisolone (Solu-Medrol) 40 mg IVP Q12 [facility] Stop: 01/27/18 21:01 Last Admin: 01/26/18 13:18 Dose: 40 mg Nystatin (Nystop Topical Powder) 1 applic TOP 0900,1200,2100 [facility] Last Admin: 01/26/18 12:00 Dose: 1 u Ofloxacin (Floxin 0.3% Otic Soln) 5 drop [place] BID@0900,2100 [facility] Last Admin: 01/26/18 08:45 Dose: 5 drop Ondansetron HCl (Zofran Inj) 4 mg IVP Q6 PRN PRN Reason: Nausea/Vomiting - Labs Labs: 01/25/18 05:30 01/25/18 05:30 PT 11.8 Seconds (9.8-13.1) 01/25/18 05:30 INR 1.1 01/25/18 05:30 APTT 34.1 Seconds (25.6-37.1) 01/25/18 05:30
[2018-01-27] MEDS: Insulin Lispro (humaLOG) 100 Units/ml Inj SC SCH ×5 (07:01→22:00)
[2018-01-27] MEDS: Hydrocortisone 2.5% (Rectal) CREAM PR SCH ×2 (08:28→17:16)
[2018-01-27] MEDS: MethylPREDNISolone 40 mg Vial IVP SCH ×2 (08:29→21:38)
[2018-01-27] MEDS: Lactobacillus Acidophilus 500 MU Cap PO SCH ×2 (08:29→17:17)
[2018-01-27] MEDS: Enoxaparin 40 mg Syringe SC SCH (08:31)
[2018-01-27] MEDS: OFLOXACIN 0.3% AU SCH ×2 (08:31→21:37)
[2018-01-27] MEDS: DESONIDE 0.05% TOP SCH ×3 (09:31→17:20)
--- NOTE | 2018-01-27 18:46 | CP.PCM.PN ---
Subjective - Date & Time of Evaluation Date of Evaluation: 01/27/18 Time of Evaluation: 17:55 - Subjective Subjective: Seen and Examined at the bed side . Objective - Vital Signs/Intake and Output Vital Signs (last 24 hours): Temp Pulse Resp BP Pulse Ox 98.8 F 67 20 151/77 H 98 01/27/18 15:56 01/27/18 15:56 01/27/18 15:56 01/27/18 15:56 01/27/18 15:56 - Medications Medications: Current Medications Atorvastatin Calcium (Lipitor) 10 mg PO DAILY [facility] Last Admin: 01/27/18 08:32 Dose: 10 mg Celecoxib (Celebrex) 200 mg PO BID [facility] Last Admin: 01/27/18 17:21 Dose: 200 mg Citalopram Hydrobromide (Celexa) 20 mg PO DAILY [facility] Last Admin: 01/27/18 08:30 Dose: 20 mg Dextrose (Dextrose 50% Inj) 0 ml IV STAT PRN; Protocol PRN Reason: Hypoglycemia Protocol Dextrose (Glutose 15) 0 gm PO ONCE PRN; Protocol PRN Reason: Hypoglycemia Protocol Diphenhydramine HCl (Benadryl) 25 mg IVP Q6 PRN PRN Reason: Itching / Pruritus Last Admin: 01/25/18 20:44 Dose: 25 mg Diphenhydramine HCl (Benadryl) 50 mg PO TID PRN PRN Reason: Itching / Pruritus Last Admin: 01/27/18 08:37 Dose: 50 mg Enoxaparin Sodium (Lovenox) 40 mg SC DAILY [facility] PRN Reason: Protocol Last Admin: 01/27/18 08:31 Dose: 40 mg Glucagon (Glucagen Diagnostic Kit) 0 mg IM STAT PRN; Protocol PRN Reason: Hypoglycemia Protocol Home Med (Patient's Own Medication) 1 unit TOP TID [facility] Last Admin: 01/27/18 17:20 Dose: Not Given Hydrocortisone (Anusol-Hc) 1 applic [place] BID [facility] Last Admin: 01/27/18 17:16 Dose: Not Given Ertapenem 1 gm/ Sodium (Chloride) 100 mls @ 100 mls/hr IVPB DAILY [facility] PRN Reason: Protocol Ibuprofen (Motrin Tab) 600 mg PO Q6 PRN PRN Reason: Pain, moderate (4-7) Insulin Human Lispro (Humalog) 0 units SC ACCU-CHECK [facility] PRN Reason: Protocol Last Admin: 01/27/18 17:20 Dose: 4 u Lactobacillus Acidophilus (Bacid Acidophilus) 1 cap PO BID [facility] Last Admin: 01/27/18 17:17 Dose: 1 cap Lisinopril (Zestril) 10 mg PO DAILY [facility] Last Admin: 01/27/18 08:33 Dose: 10 mg Loratadine (Claritin) 10 mg PO DAILY [facility] Last Admin: 01/27/18 08:30 Dose: 10 mg Methylprednisolone (Solu-Medrol) 40 mg IVP Q12 [facility] Stop: 01/27/18 21:01 Last Admin: 01/27/18 08:29 Dose: 40 mg Methylprednisolone (Solu-Medrol) 40 mg IVP DAILY [facility] Nystatin (Nystop Topical Powder) 1 applic TOP 0900,1200,2100 [facility] Last Admin: 01/27/18 13:04 Dose: 1 u Ofloxacin (Floxin 0.3% Otic Soln) 5 drop AU BID@0900,2100 [facility] Last Admin: 01/27/18 08:31 Dose: 5 drop Ondansetron HCl (Zofran Inj) 4 mg IVP Q6 PRN PRN Reason: Nausea/Vomiting - Labs Labs: 01/25/18 05:30 01/25/18 05:30 PT 11.8 Seconds (9.8-13.1) 01/25/18 05:30 INR 1.1 01/25/18 05:30 APTT 34.1 Seconds (25.6-37.1) 01/25/18 05:30 Assessment and Plan (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
[2018-01-28] MEDS: Insulin Lispro (humaLOG) 100 Units/ml Inj SC SCH ×4 (07:49→16:41)
[2018-01-28] MEDS: DESONIDE 0.05% TOP SCH ×3 (09:00→16:42)
[2018-01-28] MEDS: Hydrocortisone 2.5% (Rectal) CREAM PR SCH ×2 (09:03→16:40)
[2018-01-28] MEDS: MethylPREDNISolone 40 mg Vial IVP SCH (09:04)
[2018-01-28] MEDS: OFLOXACIN 0.3% AU SCH ×2 (09:09→22:00)
[2018-01-28] MEDS: Enoxaparin 40 mg Syringe SC SCH (09:11)
[2018-01-28] MEDS: Lactobacillus Acidophilus 500 MU Cap PO SCH ×2 (09:17→16:41)
--- NOTE | 2018-01-28 14:42 | CP.PCM.PN ---
Subjective - Date & Time of Evaluation Date of Evaluation: 01/28/18 Time of Evaluation: 14:36 - Subjective Subjective: I D NOTE THERE HAVE BEEN NO NEGATIVE REACTIONS TO ERTAPENEM WILL CONTINUE WILL CONSIDER GIVING ORAL CLINDAMYCIN OR BACTRIM Objective - Vital Signs/Intake and Output Vital Signs (last 24 hours): Temp Pulse Resp BP Pulse Ox 97.9 F 52 L 20 130/69 98 01/28/18 08:08 01/28/18 08:08 01/28/18 08:08 01/28/18 09:16 01/28/18 08:08 - Medications Medications: Current Medications Atorvastatin Calcium (Lipitor) 10 mg PO DAILY [facility] Last Admin: 01/28/18 09:10 Dose: 10 mg Celecoxib (Celebrex) 200 mg PO BID [facility] Last Admin: 01/28/18 09:03 Dose: 200 mg Citalopram Hydrobromide (Celexa) 20 mg PO DAILY [facility] Last Admin: 01/28/18 09:09 Dose: 20 mg Dextrose (Dextrose 50% Inj) 0 ml IV STAT PRN; Protocol PRN Reason: Hypoglycemia Protocol Dextrose (Glutose 15) 0 gm PO ONCE PRN; Protocol PRN Reason: Hypoglycemia Protocol Diphenhydramine HCl (Benadryl) 25 mg IVP Q6 PRN PRN Reason: Itching / Pruritus Last Admin: 01/25/18 20:44 Dose: 25 mg Diphenhydramine HCl (Benadryl) 50 mg PO TID PRN PRN Reason: Itching / Pruritus Last Admin: 01/28/18 09:17 Dose: 50 mg Enoxaparin Sodium (Lovenox) 40 mg SC DAILY [facility] PRN Reason: Protocol Last Admin: 01/28/18 09:11 Dose: 40 mg Glucagon (Glucagen Diagnostic Kit) 0 mg IM STAT PRN; Protocol PRN Reason: Hypoglycemia Protocol Home Med (Patient's Own Medication) 1 unit TOP TID [facility] Last Admin: 01/28/18 09:00 Dose: Not Given Hydrocortisone (Anusol-Hc) 1 applic [place] BID [facility] Last Admin: 01/28/18 09:03 Dose: Not Given Ertapenem 1 gm/ Sodium (Chloride) 100 mls @ 100 mls/hr IVPB DAILY [facility] PRN Reason: Protocol Last Admin: 01/28/18 10:19 Dose: 100 mls/hr Ibuprofen (Motrin Tab) 600 mg PO Q6 PRN PRN Reason: Pain, moderate (4-7) Insulin Human Lispro (Humalog) 0 units SC ACCU-CHECK [facility] PRN Reason: Protocol Last Admin: 01/28/18 12:03 Dose: 3 u Lactobacillus Acidophilus (Bacid Acidophilus) 1 cap PO BID [facility] Last Admin: 01/28/18 09:17 Dose: 1 cap Lisinopril (Zestril) 10 mg PO DAILY [facility] Last Admin: 01/28/18 09:16 Dose: 10 mg Loratadine (Claritin) 10 mg PO DAILY [facility] Last Admin: 01/28/18 09:10 Dose: 10 mg Methylprednisolone (Solu-Medrol) 40 mg IVP DAILY [facility] Last Admin: 01/28/18 09:04 Dose: 40 mg Nystatin (Nystop Topical Powder) 1 applic TOP 0900,1200,2100 [facility] Last Admin: 01/28/18 12:05 Dose: 1 u Ofloxacin (Floxin 0.3% Otic Soln) 5 drop AU BID@0900,2100 [facility] Last Admin: 01/28/18 09:09 Dose: 5 drop Ondansetron HCl (Zofran Inj) 4 mg IVP Q6 PRN PRN Reason: Nausea/Vomiting - Labs Labs: 01/25/18 05:30 01/25/18 05:30 PT 11.8 Seconds (9.8-13.1) 01/25/18 05:30 INR 1.1 01/25/18 05:30 APTT 34.1 Seconds (25.6-37.1) 01/25/18 05:30
--- NOTE | 2018-01-28 21:48 | CP.PCM.PN ---
Subjective - Date & Time of Evaluation Date of Evaluation: 01/28/18 Time of Evaluation: 17:55 Objective - Vital Signs/Intake and Output Vital Signs (last 24 hours): Temp Pulse Resp BP Pulse Ox 98.1 F 52 L 20 140/62 98 01/28/18 21:26 01/28/18 21:26 01/28/18 21:26 01/28/18 21:26 01/28/18 21:26 - Medications Medications: Current Medications Atorvastatin Calcium (Lipitor) 10 mg PO DAILY [facility] Last Admin: 01/28/18 09:10 Dose: 10 mg Celecoxib (Celebrex) 200 mg PO BID [facility] Last Admin: 01/28/18 16:41 Dose: 200 mg Citalopram Hydrobromide (Celexa) 20 mg PO DAILY [facility] Last Admin: 01/28/18 09:09 Dose: 20 mg Dextrose (Dextrose 50% Inj) 0 ml IV STAT PRN; Protocol PRN Reason: Hypoglycemia Protocol Dextrose (Glutose 15) 0 gm PO ONCE PRN; Protocol PRN Reason: Hypoglycemia Protocol Diphenhydramine HCl (Benadryl) 25 mg IVP Q6 PRN PRN Reason: Itching / Pruritus Last Admin: 01/25/18 20:44 Dose: 25 mg Diphenhydramine HCl (Benadryl) 50 mg PO TID PRN PRN Reason: Itching / Pruritus Last Admin: 01/28/18 09:17 Dose: 50 mg Glucagon (Glucagen Diagnostic Kit) 0 mg IM STAT PRN; Protocol PRN Reason: Hypoglycemia Protocol Home Med (Patient's Own Medication) 1 unit TOP TID [facility] Last Admin: 01/28/18 16:42 Dose: Not Given Hydrocortisone (Anusol-Hc) 1 applic [place] BID [facility] Last Admin: 01/28/18 16:40 Dose: 1 applic Ertapenem 1 gm/ Sodium (Chloride) 100 mls @ 100 mls/hr IVPB DAILY [facility] PRN Reason: Protocol Last Admin: 01/28/18 10:19 Dose: 100 mls/hr Ibuprofen (Motrin Tab) 600 mg PO Q6 PRN PRN Reason: Pain, moderate (4-7) Insulin Human Lispro (Humalog) 0 units SC ACCU-CHECK [facility] PRN Reason: Protocol Last Admin: 01/28/18 16:41 Dose: 3 u Lactobacillus Acidophilus (Bacid Acidophilus) 1 cap PO BID [facility] Last Admin: 01/28/18 16:41 Dose: 1 cap Lisinopril (Zestril) 10 mg PO DAILY [facility] Last Admin: 01/28/18 09:16 Dose: 10 mg Loratadine (Claritin) 10 mg PO DAILY [facility] Last Admin: 01/28/18 09:10 Dose: 10 mg Methylprednisolone (Solu-Medrol) 40 mg IVP DAILY [facility] Last Admin: 01/28/18 09:04 Dose: 40 mg Nystatin (Nystop Topical Powder) 1 applic TOP 0900,1200,2100 [facility] Last Admin: 01/28/18 12:05 Dose: 1 u Ofloxacin (Floxin 0.3% Otic Soln) 5 drop [place] BID@0900,2100 [facility] Last Admin: 01/28/18 09:09 Dose: 5 drop Ondansetron HCl (Zofran Inj) 4 mg IVP Q6 PRN PRN Reason: Nausea/Vomiting - Labs Labs: 01/25/18 05:30 01/25/18 05:30 PT 11.8 Seconds (9.8-13.1) 01/25/18 05:30 INR 1.1 01/25/18 05:30 APTT 34.1 Seconds (25.6-37.1) 01/25/18 05:30 Assessment and Plan (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
[2018-01-29] MEDS: MethylPREDNISolone 40 mg Vial IVP SCH (08:00)
[2018-01-29 08:11] LABS: ALB/GLOB RATIO 1.3 (1.0-2.1); ALBUMIN 3.7 g/dL (3.5-5.0); ALT/SGPT 43 U/L (9-52); AST/SGOT 21 U/L (14-36); BLOOD UREA NITROGEN 26 mg/dl (7-17); GFR AFRICAN-AMERICAN > 60; GFR NON-AFRICAN AMERICAN > 60
[2018-01-29] MEDS: Hydrocortisone 2.5% (Rectal) CREAM PR SCH ×2 (08:57→17:03)
[2018-01-29] MEDS: OFLOXACIN 0.3% AU SCH ×2 (09:00→21:32)
[2018-01-29] MEDS: Insulin Lispro (humaLOG) 100 Units/ml Inj SC SCH ×4 (09:01→17:03)
[2018-01-29] MEDS: Lactobacillus Acidophilus 500 MU Cap PO SCH ×2 (09:01→17:01)
[2018-01-29] MEDS: DESONIDE 0.05% TOP SCH ×3 (09:02→17:02)
[2018-01-29 16:31] VITALS: RESP 20
[2018-01-29] MEDS: Enoxaparin 40 mg Syringe SC SCH (17:01)
--- NOTE | 2018-01-30 00:28 | CP.PCM.PN ---
Subjective - Date & Time of Evaluation Date of Evaluation: 01/29/18 Time of Evaluation: 16:35 Objective - Vital Signs/Intake and Output Vital Signs (last 24 hours): Temp Pulse Resp BP Pulse Ox 98.1 F 68 20 145/88 98 01/29/18 21:18 01/29/18 21:18 01/29/18 21:18 01/29/18 21:18 01/29/18 21:18 - Medications Medications: Current Medications Atorvastatin Calcium (Lipitor) 10 mg PO DAILY [facility] Last Admin: 01/29/18 09:02 Dose: 10 mg Celecoxib (Celebrex) 200 mg PO BID [facility] Last Admin: 01/29/18 17:02 Dose: 200 mg Citalopram Hydrobromide (Celexa) 20 mg PO DAILY [facility] Last Admin: 01/29/18 08:59 Dose: 20 mg Dextrose (Dextrose 50% Inj) 0 ml IV STAT PRN; Protocol PRN Reason: Hypoglycemia Protocol Dextrose (Glutose 15) 0 gm PO ONCE PRN; Protocol PRN Reason: Hypoglycemia Protocol Diphenhydramine HCl (Benadryl) 25 mg IVP Q6 PRN PRN Reason: Itching / Pruritus Last Admin: 01/25/18 20:44 Dose: 25 mg Diphenhydramine HCl (Benadryl) 50 mg PO TID PRN PRN Reason: Itching / Pruritus Last Admin: 01/29/18 21:41 Dose: 50 mg Enoxaparin Sodium (Lovenox) 40 mg SC DAILY [facility] PRN Reason: Protocol Last Admin: 01/29/18 17:01 Dose: 40 mg Glucagon (Glucagen Diagnostic Kit) 0 mg IM STAT PRN; Protocol PRN Reason: Hypoglycemia Protocol Home Med (Patient's Own Medication) 1 unit TOP TID [facility] Last Admin: 01/29/18 17:02 Dose: Not Given Hydrocortisone (Anusol-Hc) 1 applic [place] BID [facility] Last Admin: 01/29/18 17:03 Dose: Not Given Ertapenem 1 gm/ Sodium (Chloride) 100 mls @ 100 mls/hr IVPB DAILY [facility] PRN Reason: Protocol Last Admin: 01/29/18 08:58 Dose: 100 mls/hr Ibuprofen (Motrin Tab) 600 mg PO Q6 PRN PRN Reason: Pain, moderate (4-7) Insulin Human Lispro (Humalog) 0 units SC ACCU-CHECK [facility] PRN Reason: Protocol Last Admin: 01/29/18 17:03 Dose: Not Given Lactobacillus Acidophilus (Bacid Acidophilus) 1 cap PO BID [facility] Last Admin: 01/29/18 17:01 Dose: 1 cap Lisinopril (Zestril) 10 mg PO DAILY [facility] Last Admin: 01/29/18 08:58 Dose: 10 mg Loratadine (Claritin) 10 mg PO DAILY [facility] Last Admin: 01/29/18 08:59 Dose: 10 mg Methylprednisolone (Solu-Medrol) 40 mg IVP DAILY [facility] Last Admin: 01/29/18 08:00 Dose: 40 mg Nystatin (Nystop Topical Powder) 1 applic TOP 0900,1200,2100 [facility] Last Admin: 01/29/18 21:32 Dose: 1 u Ofloxacin (Floxin 0.3% Otic Soln) 5 drop [place] BID@0900,2100 [facility] Last Admin: 01/29/18 21:32 Dose: 5 drop Ondansetron HCl (Zofran Inj) 4 mg IVP Q6 PRN PRN Reason: Nausea/Vomiting - Labs Labs: 01/25/18 05:30 01/29/18 05:30 PT 11.8 Seconds (9.8-13.1) 01/25/18 05:30 INR 1.1 01/25/18 05:30 APTT 34.1 Seconds (25.6-37.1) 01/25/18 05:30 Assessment and Plan (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
[2018-01-30] MEDS: Insulin Lispro (humaLOG) 100 Units/ml Inj SC SCH ×5 (04:06→22:00)
[2018-01-30] MEDS: MethylPREDNISolone 40 mg Vial IVP SCH (08:22)
[2018-01-30] MEDS: DESONIDE 0.05% TOP SCH ×3 (08:26→16:50)
[2018-01-30] MEDS: OFLOXACIN 0.3% AU SCH ×2 (08:30→22:00)
[2018-01-30] MEDS: Enoxaparin 40 mg Syringe SC SCH (08:31)
[2018-01-30] MEDS: Hydrocortisone 2.5% (Rectal) CREAM PR SCH ×2 (08:32→16:49)
[2018-01-30] MEDS: Lactobacillus Acidophilus 500 MU Cap PO SCH ×2 (08:35→16:49)
--- NOTE | 2018-01-30 19:16 | CP.PCM.PN ---
Subjective - Date & Time of Evaluation Date of Evaluation: 01/30/18 Time of Evaluation: 19:12 - Subjective Subjective: I D NOTE DOING WELL .TOLERATING ERTAPENEM WILL ADD PO BACTRIM WILL NEED TOTAL OF 4 TO 6 WEEKS OF ANTIBIOTICS Objective - Vital Signs/Intake and Output Vital Signs (last 24 hours): Temp Pulse Resp BP Pulse Ox 98.1 F 74 20 147/73 97 01/30/18 15:41 01/30/18 15:41 01/30/18 15:41 01/30/18 15:41 01/30/18 15:41 - Medications Medications: Current Medications Atorvastatin Calcium (Lipitor) 10 mg PO DAILY [facility] Last Admin: 01/30/18 08:30 Dose: 10 mg Celecoxib (Celebrex) 200 mg PO BID [facility] Last Admin: 01/30/18 16:49 Dose: 200 mg Citalopram Hydrobromide (Celexa) 20 mg PO DAILY [facility] Last Admin: 01/30/18 08:31 Dose: 20 mg Dextrose (Dextrose 50% Inj) 0 ml IV STAT PRN; Protocol PRN Reason: Hypoglycemia Protocol Dextrose (Glutose 15) 0 gm PO ONCE PRN; Protocol PRN Reason: Hypoglycemia Protocol Diphenhydramine HCl (Benadryl) 25 mg IVP Q6 PRN PRN Reason: Itching / Pruritus Last Admin: 01/25/18 20:44 Dose: 25 mg Diphenhydramine HCl (Benadryl) 50 mg PO TID PRN PRN Reason: Itching / Pruritus Last Admin: 01/30/18 18:23 Dose: 50 mg Enoxaparin Sodium (Lovenox) 40 mg SC DAILY [facility] PRN Reason: Protocol Last Admin: 01/30/18 08:31 Dose: 40 mg Glucagon (Glucagen Diagnostic Kit) 0 mg IM STAT PRN; Protocol PRN Reason: Hypoglycemia Protocol Home Med (Patient's Own Medication) 1 unit TOP TID [facility] Last Admin: 01/30/18 16:50 Dose: 1 unit Hydrocortisone (Anusol-Hc) 1 applic [place] BID [facility] Last Admin: 01/30/18 16:49 Dose: Not Given Ertapenem 1 gm/ Sodium (Chloride) 100 mls @ 100 mls/hr IVPB DAILY [facility] PRN Reason: Protocol Last Admin: 01/30/18 08:23 Dose: 100 mls/hr Ibuprofen (Motrin Tab) 600 mg PO Q6 PRN PRN Reason: Pain, moderate (4-7) Insulin Human Lispro (Humalog) 0 units SC ACCU-CHECK [facility] PRN Reason: Protocol Last Admin: 01/30/18 16:49 Dose: Not Given Lactobacillus Acidophilus (Bacid Acidophilus) 1 cap PO BID [facility] Last Admin: 01/30/18 16:49 Dose: 1 cap Lisinopril (Zestril) 10 mg PO DAILY [facility] Last Admin: 01/30/18 08:30 Dose: 10 mg Loratadine (Claritin) 10 mg PO DAILY [facility] Last Admin: 01/30/18 08:30 Dose: 10 mg Methylprednisolone (Solu-Medrol) 40 mg IVP DAILY [facility] Last Admin: 01/30/18 08:22 Dose: 40 mg Nystatin (Nystop Topical Powder) 1 applic TOP 0900,1200,2100 [facility] Last Admin: 01/30/18 12:23 Dose: 1 u Ofloxacin (Floxin 0.3% Otic Soln) 5 drop [place] BID@0900,2100 [facility] Last Admin: 01/30/18 08:30 Dose: 5 drop Ondansetron HCl (Zofran Inj) 4 mg IVP Q6 PRN PRN Reason: Nausea/Vomiting Trimethoprim/Sulfamethoxazole (Bactrim Ds Tab) 1 tab PO Q12 [facility] PRN Reason: Protocol - Labs Labs: 01/25/18 05:30 01/29/18 05:30 PT 11.8 Seconds (9.8-13.1) 01/25/18 05:30 INR 1.1 01/25/18 05:30 APTT 34.1 Seconds (25.6-37.1) 01/25/18 05:30
--- NOTE | 2018-01-30 19:56 | CP.PCM.PN ---
Subjective - Date & Time of Evaluation Date of Evaluation: 01/30/18 Time of Evaluation: 18:50 Objective - Vital Signs/Intake and Output Vital Signs (last 24 hours): Temp Pulse Resp BP Pulse Ox 98.1 F 74 20 147/73 97 01/30/18 15:41 01/30/18 15:41 01/30/18 15:41 01/30/18 15:41 01/30/18 15:41 - Medications Medications: Current Medications Atorvastatin Calcium (Lipitor) 10 mg PO DAILY [facility] Last Admin: 01/30/18 08:30 Dose: 10 mg Celecoxib (Celebrex) 200 mg PO BID [facility] Last Admin: 01/30/18 16:49 Dose: 200 mg Citalopram Hydrobromide (Celexa) 20 mg PO DAILY [facility] Last Admin: 01/30/18 08:31 Dose: 20 mg Dextrose (Dextrose 50% Inj) 0 ml IV STAT PRN; Protocol PRN Reason: Hypoglycemia Protocol Dextrose (Glutose 15) 0 gm PO ONCE PRN; Protocol PRN Reason: Hypoglycemia Protocol Diphenhydramine HCl (Benadryl) 25 mg IVP Q6 PRN PRN Reason: Itching / Pruritus Last Admin: 01/25/18 20:44 Dose: 25 mg Diphenhydramine HCl (Benadryl) 50 mg PO TID PRN PRN Reason: Itching / Pruritus Last Admin: 01/30/18 18:23 Dose: 50 mg Enoxaparin Sodium (Lovenox) 40 mg SC DAILY [facility] PRN Reason: Protocol Last Admin: 01/30/18 08:31 Dose: 40 mg Glucagon (Glucagen Diagnostic Kit) 0 mg IM STAT PRN; Protocol PRN Reason: Hypoglycemia Protocol Home Med (Patient's Own Medication) 1 unit TOP TID [facility] Last Admin: 01/30/18 16:50 Dose: 1 unit Hydrocortisone (Anusol-Hc) 1 applic [place] BID [facility] Last Admin: 01/30/18 16:49 Dose: Not Given Ertapenem 1 gm/ Sodium (Chloride) 100 mls @ 100 mls/hr IVPB DAILY [facility] PRN Reason: Protocol Last Admin: 01/30/18 08:23 Dose: 100 mls/hr Ibuprofen (Motrin Tab) 600 mg PO Q6 PRN PRN Reason: Pain, moderate (4-7) Insulin Human Lispro (Humalog) 0 units SC ACCU-CHECK [facility] PRN Reason: Protocol Last Admin: 01/30/18 16:49 Dose: Not Given Lactobacillus Acidophilus (Bacid Acidophilus) 1 cap PO BID [facility] Last Admin: 01/30/18 16:49 Dose: 1 cap Lisinopril (Zestril) 10 mg PO DAILY [facility] Last Admin: 01/30/18 08:30 Dose: 10 mg Loratadine (Claritin) 10 mg PO DAILY [facility] Last Admin: 01/30/18 08:30 Dose: 10 mg Methylprednisolone (Solu-Medrol) 40 mg IVP DAILY [facility] Last Admin: 01/30/18 08:22 Dose: 40 mg Nystatin (Nystop Topical Powder) 1 applic TOP 0900,1200,2100 [facility] Last Admin: 01/30/18 12:23 Dose: 1 u Ofloxacin (Floxin 0.3% Otic Soln) 5 drop [place] BID@0900,2100 [facility] Last Admin: 01/30/18 08:30 Dose: 5 drop Ondansetron HCl (Zofran Inj) 4 mg IVP Q6 PRN PRN Reason: Nausea/Vomiting Trimethoprim/Sulfamethoxazole (Bactrim Ds Tab) 1 tab PO Q12 [facility] PRN Reason: Protocol - Labs Labs: 01/25/18 05:30 01/29/18 05:30 PT 11.8 Seconds (9.8-13.1) 01/25/18 05:30 INR 1.1 01/25/18 05:30 APTT 34.1 Seconds (25.6-37.1) 01/25/18 05:30 Assessment and Plan (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
[2018-01-30] MEDS ORDERED: MethylPREDNISolone 40 mg Vial IVP ONE (20:57)
[2018-01-30] MEDS: Tmp-Smz 800 mg-160 mg DS Tab PO SCH (22:00)
[2018-01-31 06:21] LABS: BASO % 0.4 % (0.0-2.0); EOS # 0.1 K/uL (0.0-0.7); EOS % 0.6 % (0.0-4.0); HEMOGLOBIN 13.8 g/dL (12.0-16.0); LYMPH # 2.4 K/uL (1.0-4.3); LYMPH % 17.9 % (20.0-40.0); MEAN CELL VOLUME 92.3 fl (81.0-99.0); MEAN CORPUSCULAR HEMOGLOBIN 30.8 pg (27.0-31.0); MEAN CORPUSCULAR HGB CONC 33.3 g/dL (33.0-37.0); MEAN PLATELET VOLUME 8.7 fl (7.2-11.7); MONO # 0.3 K/uL (0.0-0.8); MONO % 2.5 % (0.0-10.0); NEUT # 10.7 K/uL (1.8-7.0); NEUT % 78.6 % (50.0-75.0); RBC 4.49 Mil/uL (3.80-5.20); WHITE BLOOD COUNT 13.6 K/uL (4.8-10.8)
[2018-01-31 06:32] LABS: ALB/GLOB RATIO 1.4 (1.0-2.1); ALBUMIN 3.9 g/dL (3.5-5.0); ALT/SGPT 67 U/L (9-52); AST/SGOT 43 U/L (14-36); BLOOD UREA NITROGEN 26 mg/dl (7-17); CALCIUM 8.9 mg/dL (8.4-10.2); GFR AFRICAN-AMERICAN > 60; GFR NON-AFRICAN AMERICAN > 60
[2018-01-31] MEDS: Insulin Lispro (humaLOG) 100 Units/ml Inj SC SCH ×4 (07:18→22:00)
[2018-01-31] MEDS: MethylPREDNISolone 40 mg Vial IVP SCH ×2 (08:14→22:02)
[2018-01-31] MEDS: Hydrocortisone 2.5% (Rectal) CREAM PR SCH ×2 (08:27→17:06)
[2018-01-31] MEDS: DESONIDE 0.05% TOP SCH ×3 (08:27→16:36)
[2018-01-31] MEDS: Enoxaparin 40 mg Syringe SC SCH (09:06)
[2018-01-31] MEDS: Tmp-Smz 800 mg-160 mg DS Tab PO SCH (09:07)
[2018-01-31] MEDS: Lactobacillus Acidophilus 500 MU Cap PO SCH ×2 (09:07→16:35)
[2018-01-31] MEDS: OFLOXACIN 0.3% AU SCH ×2 (09:12→22:01)
--- NOTE | 2018-01-31 18:20 | CP.PCM.PN ---
Subjective - Date & Time of Evaluation Date of Evaluation: 01/31/18 Time of Evaluation: 18:18 - Subjective Subjective: I D NOTE HAS RASH IN SAME AREAS HOLD ANTIBIOTICS AGAIN SOLUMEDROL Q12H Objective - Vital Signs/Intake and Output Vital Signs (last 24 hours): Temp Pulse Resp BP Pulse Ox 97.7 F 82 20 156/75 H 97 01/31/18 15:43 01/31/18 15:43 01/31/18 15:43 01/31/18 15:43 01/31/18 15:43 - Medications Medications: Current Medications Atorvastatin Calcium (Lipitor) 10 mg PO DAILY [facility] Last Admin: 01/31/18 16:36 Dose: 10 mg Celecoxib (Celebrex) 200 mg PO BID [facility] Last Admin: 01/31/18 16:36 Dose: 200 mg Citalopram Hydrobromide (Celexa) 20 mg PO DAILY [facility] Last Admin: 01/31/18 09:09 Dose: 20 mg Dextrose (Dextrose 50% Inj) 0 ml IV STAT PRN; Protocol PRN Reason: Hypoglycemia Protocol Dextrose (Glutose 15) 0 gm PO ONCE PRN; Protocol PRN Reason: Hypoglycemia Protocol Diphenhydramine HCl (Benadryl) 25 mg IVP Q6 PRN PRN Reason: Itching / Pruritus Last Admin: 01/25/18 20:44 Dose: 25 mg Diphenhydramine HCl (Benadryl) 50 mg PO TID PRN PRN Reason: Itching / Pruritus Diphenhydramine HCl (Benadryl) 50 mg PO TID PRN PRN Reason: Itching / Pruritus Enoxaparin Sodium (Lovenox) 40 mg SC DAILY [facility] PRN Reason: Protocol Last Admin: 01/31/18 09:06 Dose: 40 mg Glucagon (Glucagen Diagnostic Kit) 0 mg IM STAT PRN; Protocol PRN Reason: Hypoglycemia Protocol Home Med (Patient's Own Medication) 1 unit TOP TID [facility] Last Admin: 01/31/18 16:36 Dose: Not Given Hydrocortisone (Anusol-Hc) 1 applic [place] BID [facility] Last Admin: 01/31/18 17:06 Dose: Not Given Ibuprofen (Motrin Tab) 600 mg PO Q6 PRN PRN Reason: Pain, moderate (4-7) Insulin Human Lispro (Humalog) 0 units SC ACCU-CHECK [facility] PRN Reason: Protocol Last Admin: 01/31/18 16:38 Dose: 3 u Lactobacillus Acidophilus (Bacid Acidophilus) 1 cap PO BID [facility] Last Admin: 01/31/18 16:35 Dose: 1 cap Lisinopril (Zestril) 10 mg PO DAILY [facility] Last Admin: 01/31/18 09:00 Dose: 10 mg Loratadine (Claritin) 10 mg PO DAILY [facility] Last Admin: 01/31/18 09:08 Dose: 10 mg Methylprednisolone (Solu-Medrol) 40 mg IVP DAILY [facility] Last Admin: 01/31/18 08:14 Dose: 40 mg Nystatin (Nystop Topical Powder) 1 applic TOP 0900,1200,2100 [facility] Last Admin: 01/31/18 12:18 Dose: 1 u Ofloxacin (Floxin 0.3% Otic Soln) 5 drop [place] BID@0900,2100 [facility] Last Admin: 01/31/18 09:12 Dose: 5 drop Ondansetron HCl (Zofran Inj) 4 mg IVP Q6 PRN PRN Reason: Nausea/Vomiting Trimethoprim/Sulfamethoxazole (Bactrim Ds Tab) 1 tab PO Q12 [facility] PRN Reason: Protocol Last Admin: 01/31/18 09:07 Dose: 1 tab - Labs Labs: 01/31/18 05:40 01/31/18 05:40 PT 11.8 Seconds (9.8-13.1) 01/25/18 05:30 INR 1.1 01/25/18 05:30 APTT 34.1 Seconds (25.6-37.1) 01/25/18 05:30
[2018-01-31] MEDS ORDERED: methylPREDNISolone 40 MG in Sodium Chloride 0.9% 50 ML IVPB SCH (21:00)
[2018-02-01] MEDS: Insulin Lispro (humaLOG) 100 Units/ml Inj SC SCH ×4 (06:53→23:27)
[2018-02-01] MEDS: MethylPREDNISolone 40 mg Vial IVP SCH ×2 (08:51→21:44)
[2018-02-01] MEDS: Enoxaparin 40 mg Syringe SC SCH (08:51)
[2018-02-01] MEDS: Lactobacillus Acidophilus 500 MU Cap PO SCH ×2 (08:53→17:35)
[2018-02-01] MEDS: DESONIDE 0.05% TOP SCH ×3 (09:00→18:27)
[2018-02-01] MEDS: Hydrocortisone 2.5% (Rectal) CREAM PR SCH ×2 (09:30→17:31)
[2018-02-01] MEDS: OFLOXACIN 0.3% AU SCH ×2 (10:11→21:44)
[2018-02-01 11:22] LABS: IMMUNOGLOBULIN M 95.4 mg/dL (40.0-230.0)
--- NOTE | 2018-02-02 00:23 | CP.PCM.PN ---
Subjective - Date & Time of Evaluation Date of Evaluation: 01/31/18 Time of Evaluation: 19:00 Objective - Vital Signs/Intake and Output Vital Signs (last 24 hours): Temp Pulse Resp BP Pulse Ox 98.4 F 71 20 122/68 97 02/01/18 21:45 02/01/18 21:45 02/01/18 21:45 02/01/18 21:45 02/01/18 21:45 - Medications Medications: Current Medications Atorvastatin Calcium (Lipitor) 10 mg PO DAILY [facility] Last Admin: 02/01/18 08:54 Dose: 10 mg Celecoxib (Celebrex) 200 mg PO BID [facility] Last Admin: 02/01/18 17:35 Dose: 200 mg Citalopram Hydrobromide (Celexa) 20 mg PO DAILY [facility] Last Admin: 02/01/18 08:52 Dose: 20 mg Dextrose (Dextrose 50% Inj) 0 ml IV STAT PRN; Protocol PRN Reason: Hypoglycemia Protocol Dextrose (Glutose 15) 0 gm PO ONCE PRN; Protocol PRN Reason: Hypoglycemia Protocol Diphenhydramine HCl (Benadryl) 25 mg IVP Q6 PRN PRN Reason: Itching / Pruritus Last Admin: 01/25/18 20:44 Dose: 25 mg Diphenhydramine HCl (Benadryl) 50 mg PO TID PRN PRN Reason: Itching / Pruritus Last Admin: 02/01/18 17:40 Dose: 50 mg Diphenhydramine HCl (Benadryl) 50 mg PO TID PRN PRN Reason: Itching / Pruritus Glucagon (Glucagen Diagnostic Kit) 0 mg IM STAT PRN; Protocol PRN Reason: Hypoglycemia Protocol Home Med (Patient's Own Medication) 1 unit TOP TID [facility] Last Admin: 02/01/18 18:27 Dose: Not Given Hydrocortisone (Anusol-Hc) 1 applic CA BID [facility] Last Admin: 02/01/18 17:31 Dose: Not Given Ibuprofen (Motrin Tab) 600 mg PO Q6 PRN PRN Reason: Pain, moderate (4-7) Insulin Human Lispro (Humalog) 0 units SC ACCU-CHECK ANGELA PRN Reason: Protocol Last Admin: 02/01/18 17:36 Dose: 3 u Lactobacillus Acidophilus (Bacid Acidophilus) 1 cap PO BID [facility] Last Admin: 02/01/18 17:35 Dose: 1 cap Lisinopril (Zestril) 10 mg PO DAILY [facility] Last Admin: 02/01/18 08:53 Dose: 10 mg Loratadine (Claritin) 10 mg PO DAILY [facility] Last Admin: 02/01/18 08:54 Dose: 10 mg Methylprednisolone (Solu-Medrol) 40 mg IVP Q12H [facility] Last Admin: 02/01/18 21:44 Dose: 40 mg Nystatin (Nystop Topical Powder) 1 applic TOP 0900,1200,2100 [facility] Last Admin: 02/01/18 21:48 Dose: 1 u Ofloxacin (Floxin 0.3% Otic Soln) 5 drop AU BID@0900,2100 [facility] Last Admin: 02/01/18 21:44 Dose: 5 drop Ondansetron HCl (Zofran Inj) 4 mg IVP Q6 PRN PRN Reason: Nausea/Vomiting Trimethoprim/Sulfamethoxazole (Bactrim Ds Tab) 1 tab PO Q12 [facility] PRN Reason: Protocol Last Admin: 01/31/18 09:07 Dose: 1 tab - Labs Labs: 01/31/18 05:40 01/31/18 05:40 PT 11.8 Seconds (9.8-13.1) 01/25/18 05:30 INR 1.1 01/25/18 05:30 APTT 34.1 Seconds (25.6-37.1) 01/25/18 05:30 Assessment and Plan (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
[2018-02-02] MEDS: Hydrocortisone 2.5% (Rectal) CREAM PR SCH ×2 (08:38→16:07)
[2018-02-02] MEDS: Insulin Lispro (humaLOG) 100 Units/ml Inj SC SCH ×4 (08:42→22:10)
[2018-02-02] MEDS: OFLOXACIN 0.3% AU SCH ×2 (08:43→22:01)
[2018-02-02] MEDS: Lactobacillus Acidophilus 500 MU Cap PO SCH ×2 (08:44→16:06)
[2018-02-02] MEDS: MethylPREDNISolone 40 mg Vial IVP SCH ×2 (08:44→22:03)
[2018-02-02] MEDS: DESONIDE 0.05% TOP SCH ×3 (08:47→16:08)
--- NOTE | 2018-02-02 11:05 | CP.PCM.PN ---
Subjective - Date & Time of Evaluation Date of Evaluation: 02/02/18 Time of Evaluation: 10:55 - Subjective Subjective: I D NOTE HAVE STARTED AZACTAM 1 GM IV Q12H FIRST DOSE WILL BE PRECEDED BY 40MG SOLUMEDROL WILL DO THIS INITIALLY ,OBSERVE CLINICALLY WHEN WE MAY STOP. PATIENT STATES SHE IS FEELING BETTER RASH HAS IMPROVED Objective - Vital Signs/Intake and Output Vital Signs (last 24 hours): Temp Pulse Resp BP Pulse Ox 97.7 F 56 L 20 133/68 100 02/02/18 08:03 02/02/18 08:46 02/02/18 08:03 02/02/18 08:46 02/02/18 08:03 - Medications Medications: Current Medications Atorvastatin Calcium (Lipitor) 10 mg PO DAILY [facility] Last Admin: 02/02/18 08:46 Dose: 10 mg Celecoxib (Celebrex) 200 mg PO BID [facility] Last Admin: 02/02/18 08:44 Dose: 200 mg Citalopram Hydrobromide (Celexa) 20 mg PO DAILY [facility] Last Admin: 02/02/18 08:45 Dose: 20 mg Dextrose (Dextrose 50% Inj) 0 ml IV STAT PRN; Protocol PRN Reason: Hypoglycemia Protocol Dextrose (Glutose 15) 0 gm PO ONCE PRN; Protocol PRN Reason: Hypoglycemia Protocol Diphenhydramine HCl (Benadryl) 25 mg IVP Q6 PRN PRN Reason: Itching / Pruritus Last Admin: 01/25/18 20:44 Dose: 25 mg Diphenhydramine HCl (Benadryl) 50 mg PO TID PRN PRN Reason: Itching / Pruritus Last Admin: 02/02/18 08:45 Dose: 50 mg Diphenhydramine HCl (Benadryl) 50 mg PO TID PRN PRN Reason: Itching / Pruritus Glucagon (Glucagen Diagnostic Kit) 0 mg IM STAT PRN; Protocol PRN Reason: Hypoglycemia Protocol Home Med (Patient's Own Medication) 1 unit TOP TID [facility] Last Admin: 02/02/18 08:47 Dose: Not Given Hydrocortisone (Anusol-Hc) 1 applic [place] BID [facility] Last Admin: 02/02/18 08:38 Dose: Not Given Aztreonam 1 gm/ Sodium (Chloride) 100 mls @ 100 mls/hr IVPB Q12@0500,1700 [facility] PRN Reason: Protocol Ibuprofen (Motrin Tab) 600 mg PO Q6 PRN PRN Reason: Pain, moderate (4-7) Insulin Human Lispro (Humalog) 0 units SC ACCU-CHECK [facility] PRN Reason: Protocol Last Admin: 02/02/18 08:42 Dose: 2 u Lactobacillus Acidophilus (Bacid Acidophilus) 1 cap PO BID [facility] Last Admin: 02/02/18 08:44 Dose: 1 cap Lisinopril (Zestril) 10 mg PO DAILY [facility] Last Admin: 02/02/18 08:46 Dose: 10 mg Loratadine (Claritin) 10 mg PO DAILY [facility] Last Admin: 02/02/18 08:47 Dose: 10 mg Methylprednisolone (Solu-Medrol) 40 mg IVP Q12H [facility] Last Admin: 02/02/18 08:44 Dose: 40 mg Nystatin (Nystop Topical Powder) 1 applic TOP 0900,1200,2100 [facility] Last Admin: 02/02/18 08:44 Dose: 1 u Ofloxacin (Floxin 0.3% Otic Soln) 5 drop AU BID@0900,2100 [facility] Last Admin: 02/02/18 08:43 Dose: 5 drop Ondansetron HCl (Zofran Inj) 4 mg IVP Q6 PRN PRN Reason: Nausea/Vomiting Trimethoprim/Sulfamethoxazole (Bactrim Ds Tab) 1 tab PO Q12 [facility] PRN Reason: Protocol Last Admin: 01/31/18 09:07 Dose: 1 tab - Labs Labs: 01/31/18 05:40 01/31/18 05:40 PT 11.8 Seconds (9.8-13.1) 01/25/18 05:30 INR 1.1 01/25/18 05:30 APTT 34.1 Seconds (25.6-37.1) 01/25/18 05:30
[2018-02-02] MEDS: Aztreonam 1 GM in Sodium Chloride 0.9% 100 ML IVPB SCH (16:06)
[2018-02-02] MEDS: Tmp-Smz 800 mg-160 mg DS Tab PO SCH (22:00)
[2018-02-03] MEDS: Aztreonam 1 GM in Sodium Chloride 0.9% 100 ML IVPB SCH ×2 (05:01→16:02)
[2018-02-03] MEDS: Insulin Lispro (humaLOG) 100 Units/ml Inj SC SCH ×4 (06:57→23:31)
--- NOTE | 2018-02-03 08:08 | CP.PCM.PN ---
Subjective - Date & Time of Evaluation Date of Evaluation: 02/01/18 Time of Evaluation: 18:25 Objective - Vital Signs/Intake and Output Vital Signs (last 24 hours): Temp Pulse Resp BP Pulse Ox 98.2 F 67 20 126/76 98 02/02/18 20:42 02/02/18 20:42 02/02/18 20:42 02/02/18 20:42 02/02/18 20:42 - Medications Medications: Current Medications Atorvastatin Calcium (Lipitor) 10 mg PO DAILY [facility] Last Admin: 02/02/18 08:46 Dose: 10 mg Celecoxib (Celebrex) 200 mg PO BID [facility] Last Admin: 02/02/18 16:07 Dose: 200 mg Citalopram Hydrobromide (Celexa) 20 mg PO DAILY [facility] Last Admin: 02/02/18 08:45 Dose: 20 mg Dextrose (Dextrose 50% Inj) 0 ml IV STAT PRN; Protocol PRN Reason: Hypoglycemia Protocol Dextrose (Glutose 15) 0 gm PO ONCE PRN; Protocol PRN Reason: Hypoglycemia Protocol Diphenhydramine HCl (Benadryl) 25 mg IVP Q6 PRN PRN Reason: Itching / Pruritus Last Admin: 01/25/18 20:44 Dose: 25 mg Diphenhydramine HCl (Benadryl) 50 mg PO TID PRN PRN Reason: Itching / Pruritus Last Admin: 02/02/18 22:24 Dose: 50 mg Diphenhydramine HCl (Benadryl) 50 mg PO TID PRN PRN Reason: Itching / Pruritus Glucagon (Glucagen Diagnostic Kit) 0 mg IM STAT PRN; Protocol PRN Reason: Hypoglycemia Protocol Home Med (Patient's Own Medication) 1 unit TOP TID [facility] Last Admin: 02/02/18 16:08 Dose: Not Given Hydrocortisone (Anusol-Hc) 1 applic [place] BID [facility] Last Admin: 02/02/18 16:07 Dose: Not Given Aztreonam 1 gm/ Sodium (Chloride) 100 mls @ 100 mls/hr IVPB Q12@0500,1700 [facility] PRN Reason: Protocol Last Admin: 02/03/18 05:01 Dose: 100 mls/hr Ibuprofen (Motrin Tab) 600 mg PO Q6 PRN PRN Reason: Pain, moderate (4-7) Insulin Human Lispro (Humalog) 0 units SC ACCU-CHECK [facility] PRN Reason: Protocol Last Admin: 02/03/18 06:57 Dose: 2 u Lactobacillus Acidophilus (Bacid Acidophilus) 1 cap PO BID [facility] Last Admin: 02/02/18 16:06 Dose: 1 cap Lisinopril (Zestril) 10 mg PO DAILY [facility] Last Admin: 02/02/18 08:46 Dose: 10 mg Loratadine (Claritin) 10 mg PO DAILY [facility] Last Admin: 02/02/18 08:47 Dose: 10 mg Methylprednisolone (Solu-Medrol) 40 mg IVP Q12H [facility] Last Admin: 02/02/18 22:03 Dose: 40 mg Nystatin (Nystop Topical Powder) 1 applic TOP 0900,1200,2100 [facility] Last Admin: 02/02/18 22:02 Dose: Not Given Ofloxacin (Floxin 0.3% Otic Soln) 5 drop AU BID@0900,2100 [facility] Last Admin: 02/02/18 22:01 Dose: 5 drop Ondansetron HCl (Zofran Inj) 4 mg IVP Q6 PRN PRN Reason: Nausea/Vomiting Trimethoprim/Sulfamethoxazole (Bactrim Ds Tab) 1 tab PO Q12 [facility] PRN Reason: Protocol Last Admin: 02/02/18 22:00 Dose: 1 tab - Labs Labs: 01/31/18 05:40 01/31/18 05:40 PT 11.8 Seconds (9.8-13.1) 01/25/18 05:30 INR 1.1 01/25/18 05:30 APTT 34.1 Seconds (25.6-37.1) 01/25/18 05:30 Assessment and Plan (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
--- NOTE | 2018-02-03 08:09 | CP.PCM.PN ---
Subjective - Date & Time of Evaluation Date of Evaluation: 02/02/18 Time of Evaluation: 19:45 Objective - Vital Signs/Intake and Output Vital Signs (last 24 hours): Temp Pulse Resp BP Pulse Ox 98.2 F 67 20 126/76 98 02/02/18 20:42 02/02/18 20:42 02/02/18 20:42 02/02/18 20:42 02/02/18 20:42 - Medications Medications: Current Medications Atorvastatin Calcium (Lipitor) 10 mg PO DAILY [facility] Last Admin: 02/02/18 08:46 Dose: 10 mg Celecoxib (Celebrex) 200 mg PO BID [facility] Last Admin: 02/02/18 16:07 Dose: 200 mg Citalopram Hydrobromide (Celexa) 20 mg PO DAILY [facility] Last Admin: 02/02/18 08:45 Dose: 20 mg Dextrose (Dextrose 50% Inj) 0 ml IV STAT PRN; Protocol PRN Reason: Hypoglycemia Protocol Dextrose (Glutose 15) 0 gm PO ONCE PRN; Protocol PRN Reason: Hypoglycemia Protocol Diphenhydramine HCl (Benadryl) 25 mg IVP Q6 PRN PRN Reason: Itching / Pruritus Last Admin: 01/25/18 20:44 Dose: 25 mg Diphenhydramine HCl (Benadryl) 50 mg PO TID PRN PRN Reason: Itching / Pruritus Last Admin: 02/02/18 22:24 Dose: 50 mg Diphenhydramine HCl (Benadryl) 50 mg PO TID PRN PRN Reason: Itching / Pruritus Glucagon (Glucagen Diagnostic Kit) 0 mg IM STAT PRN; Protocol PRN Reason: Hypoglycemia Protocol Home Med (Patient's Own Medication) 1 unit TOP TID [facility] Last Admin: 02/02/18 16:08 Dose: Not Given Hydrocortisone (Anusol-Hc) 1 applic [place] BID [facility] Last Admin: 02/02/18 16:07 Dose: Not Given Aztreonam 1 gm/ Sodium (Chloride) 100 mls @ 100 mls/hr IVPB Q12@0500,1700 [facility] PRN Reason: Protocol Last Admin: 02/03/18 05:01 Dose: 100 mls/hr Ibuprofen (Motrin Tab) 600 mg PO Q6 PRN PRN Reason: Pain, moderate (4-7) Insulin Human Lispro (Humalog) 0 units SC ACCU-CHECK [facility] PRN Reason: Protocol Last Admin: 02/03/18 06:57 Dose: 2 u Lactobacillus Acidophilus (Bacid Acidophilus) 1 cap PO BID [facility] Last Admin: 02/02/18 16:06 Dose: 1 cap Lisinopril (Zestril) 10 mg PO DAILY [facility] Last Admin: 02/02/18 08:46 Dose: 10 mg Loratadine (Claritin) 10 mg PO DAILY [facility] Last Admin: 02/02/18 08:47 Dose: 10 mg Methylprednisolone (Solu-Medrol) 40 mg IVP Q12H [facility] Last Admin: 02/02/18 22:03 Dose: 40 mg Nystatin (Nystop Topical Powder) 1 applic TOP 0900,1200,2100 [facility] Last Admin: 02/02/18 22:02 Dose: Not Given Ofloxacin (Floxin 0.3% Otic Soln) 5 drop AU BID@0900,2100 [facility] Last Admin: 02/02/18 22:01 Dose: 5 drop Ondansetron HCl (Zofran Inj) 4 mg IVP Q6 PRN PRN Reason: Nausea/Vomiting Trimethoprim/Sulfamethoxazole (Bactrim Ds Tab) 1 tab PO Q12 [facility] PRN Reason: Protocol Last Admin: 02/02/18 22:00 Dose: 1 tab - Labs Labs: 01/31/18 05:40 01/31/18 05:40 PT 11.8 Seconds (9.8-13.1) 01/25/18 05:30 INR 1.1 01/25/18 05:30 APTT 34.1 Seconds (25.6-37.1) 01/25/18 05:30 Assessment and Plan (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
[2018-02-03] MEDS: Hydrocortisone 2.5% (Rectal) CREAM PR SCH ×2 (08:31→16:03)
[2018-02-03] MEDS: OFLOXACIN 0.3% AU SCH ×2 (08:32→21:01)
[2018-02-03] MEDS: MethylPREDNISolone 40 mg Vial IVP SCH ×2 (08:33→20:52)
[2018-02-03] MEDS: Lactobacillus Acidophilus 500 MU Cap PO SCH ×2 (08:34→16:03)
[2018-02-03] MEDS: Tmp-Smz 800 mg-160 mg DS Tab PO SCH ×2 (08:34→20:59)
[2018-02-03] MEDS: DESONIDE 0.05% TOP SCH ×3 (08:37→16:03)
--- NOTE | 2018-02-03 15:38 | CP.PCM.PN ---
Subjective - Date & Time of Evaluation Date of Evaluation: 02/03/18 Time of Evaluation: 15:22 - Subjective Subjective: I D NOTE SO FAR NO RASH ON AZACTAM WILL CONTINUE REVIEWED c patient and IgE IS ELEVATED ,CH50is >60 Objective - Vital Signs/Intake and Output Vital Signs (last 24 hours): Temp Pulse Resp BP Pulse Ox 97.9 F 55 L 20 125/62 99 02/03/18 08:18 02/03/18 08:36 02/03/18 08:18 02/03/18 08:36 02/03/18 08:18 Intake and Output: 02/03/18 02/03/18 06:59 18:59 Intake Total 150 Balance 150 - Medications Medications: Current Medications Atorvastatin Calcium (Lipitor) 10 mg PO DAILY [facility] Last Admin: 02/03/18 08:36 Dose: 10 mg Celecoxib (Celebrex) 200 mg PO BID [facility] Last Admin: 02/03/18 08:35 Dose: 200 mg Citalopram Hydrobromide (Celexa) 20 mg PO DAILY [facility] Last Admin: 02/03/18 08:35 Dose: 20 mg Dextrose (Dextrose 50% Inj) 0 ml IV STAT PRN; Protocol PRN Reason: Hypoglycemia Protocol Dextrose (Glutose 15) 0 gm PO ONCE PRN; Protocol PRN Reason: Hypoglycemia Protocol Diphenhydramine HCl (Benadryl) 25 mg IVP Q6 PRN PRN Reason: Itching / Pruritus Last Admin: 01/25/18 20:44 Dose: 25 mg Diphenhydramine HCl (Benadryl) 50 mg PO TID PRN PRN Reason: Itching / Pruritus Glucagon (Glucagen Diagnostic Kit) 0 mg IM STAT PRN; Protocol PRN Reason: Hypoglycemia Protocol Home Med (Patient's Own Medication) 1 unit TOP TID [facility] Last Admin: 02/03/18 13:14 Dose: Not Given Hydrocortisone (Anusol-Hc) 1 applic [place] BID [facility] Last Admin: 02/03/18 08:31 Dose: Not Given Aztreonam 1 gm/ Sodium (Chloride) 100 mls @ 100 mls/hr IVPB Q12@0500,1700 [facility] PRN Reason: Protocol Last Admin: 02/03/18 05:01 Dose: 100 mls/hr Ibuprofen (Motrin Tab) 600 mg PO Q6 PRN PRN Reason: Pain, moderate (4-7) Insulin Human Lispro (Humalog) 0 units SC ACCU-CHECK [facility] PRN Reason: Protocol Last Admin: 02/03/18 11:01 Dose: 4 u Lactobacillus Acidophilus (Bacid Acidophilus) 1 cap PO BID [facility] Last Admin: 02/03/18 08:34 Dose: 1 cap Lisinopril (Zestril) 10 mg PO DAILY [facility] Last Admin: 02/03/18 08:36 Dose: 10 mg Loratadine (Claritin) 10 mg PO DAILY [facility] Last Admin: 02/03/18 08:35 Dose: 10 mg Methylprednisolone (Solu-Medrol) 40 mg IVP Q12H [facility] Last Admin: 02/03/18 08:33 Dose: 40 mg Nystatin (Nystop Topical Powder) 1 applic TOP 0900,1200,2100 [facility] Last Admin: 02/03/18 13:14 Dose: Not Given Ofloxacin (Floxin 0.3% Otic Soln) 5 drop AU BID@0900,2100 [facility] Last Admin: 02/03/18 08:32 Dose: 5 drop Ondansetron HCl (Zofran Inj) 4 mg IVP Q6 PRN PRN Reason: Nausea/Vomiting Trimethoprim/Sulfamethoxazole (Bactrim Ds Tab) 1 tab PO Q12 [facility] PRN Reason: Protocol Last Admin: 02/03/18 08:34 Dose: 1 tab - Labs Labs: 01/31/18 05:40 01/31/18 05:40 PT 11.8 Seconds (9.8-13.1) 01/25/18 05:30 INR 1.1 01/25/18 05:30 APTT 34.1 Seconds (25.6-37.1) 01/25/18 05:30
[2018-02-04] MEDS: Aztreonam 1 GM in Sodium Chloride 0.9% 100 ML IVPB SCH ×2 (05:14→16:08)
[2018-02-04] MEDS: Insulin Lispro (humaLOG) 100 Units/ml Inj SC SCH ×4 (07:37→22:09)
[2018-02-04] MEDS: Lactobacillus Acidophilus 500 MU Cap PO SCH ×2 (08:42→16:08)
[2018-02-04] MEDS: Tmp-Smz 800 mg-160 mg DS Tab PO SCH ×2 (08:43→22:07)
[2018-02-04] MEDS: OFLOXACIN 0.3% AU SCH ×2 (08:44→21:44)
[2018-02-04] MEDS: MethylPREDNISolone 40 mg Vial IVP SCH (08:45)
[2018-02-04] MEDS: DESONIDE 0.05% TOP SCH ×3 (09:36→18:03)
[2018-02-04] MEDS: Hydrocortisone 2.5% (Rectal) CREAM PR SCH ×2 (09:36→16:13)
--- NOTE | 2018-02-04 18:23 | CP.PCM.PN ---
Subjective - Date & Time of Evaluation Date of Evaluation: 02/04/18 Time of Evaluation: 18:21 - Subjective Subjective: I D NOTE SO FAR ,LOOKING GOOD,NO NEW RASH LABS NO CHANGE,CONTINUE AZACTAM IV AND PO BACTRIM Objective - Vital Signs/Intake and Output Vital Signs (last 24 hours): Temp Pulse Resp BP Pulse Ox 98.4 F 84 20 152/75 H 97 02/04/18 15:55 02/04/18 15:55 02/04/18 15:55 02/04/18 15:55 02/04/18 15:55 - Medications Medications: Current Medications Atorvastatin Calcium (Lipitor) 10 mg PO DAILY [facility] Last Admin: 02/04/18 16:12 Dose: 10 mg Celecoxib (Celebrex) 200 mg PO BID [facility] Last Admin: 02/04/18 16:12 Dose: 200 mg Citalopram Hydrobromide (Celexa) 20 mg PO DAILY [facility] Last Admin: 02/04/18 08:43 Dose: 20 mg Dextrose (Dextrose 50% Inj) 0 ml IV STAT PRN; Protocol PRN Reason: Hypoglycemia Protocol Dextrose (Glutose 15) 0 gm PO ONCE PRN; Protocol PRN Reason: Hypoglycemia Protocol Diphenhydramine HCl (Benadryl) 25 mg IVP Q6 PRN PRN Reason: Itching / Pruritus Last Admin: 01/25/18 20:44 Dose: 25 mg Diphenhydramine HCl (Benadryl) 50 mg PO TID PRN PRN Reason: Itching / Pruritus Last Admin: 02/03/18 21:00 Dose: 50 mg Glucagon (Glucagen Diagnostic Kit) 0 mg IM STAT PRN; Protocol PRN Reason: Hypoglycemia Protocol Home Med (Patient's Own Medication) 1 unit TOP TID [facility] Last Admin: 02/04/18 18:03 Dose: Not Given Hydrocortisone (Anusol-Hc) 1 applic [place] BID [facility] Last Admin: 02/04/18 16:13 Dose: Not Given Aztreonam 1 gm/ Sodium (Chloride) 100 mls @ 100 mls/hr IVPB Q12@0500,1700 [facility] PRN Reason: Protocol Last Admin: 02/04/18 16:08 Dose: 100 mls/hr Ibuprofen (Motrin Tab) 600 mg PO Q6 PRN PRN Reason: Pain, moderate (4-7) Insulin Human Lispro (Humalog) 0 units SC ACCU-CHECK [facility] PRN Reason: Protocol Last Admin: 02/04/18 16:15 Dose: 4 u Lactobacillus Acidophilus (Bacid Acidophilus) 1 cap PO BID [facility] Last Admin: 02/04/18 16:08 Dose: 1 cap Lisinopril (Zestril) 10 mg PO DAILY [facility] Last Admin: 02/04/18 08:44 Dose: 10 mg Loratadine (Claritin) 10 mg PO DAILY [facility] Last Admin: 02/04/18 08:43 Dose: 10 mg Methylprednisolone (Solu-Medrol) 40 mg IVP Q12H [facility] Last Admin: 02/04/18 08:45 Dose: 40 mg Nystatin (Nystop Topical Powder) 1 applic TOP 0900,1200,2100 [facility] Last Admin: 02/04/18 13:45 Dose: Not Given Ofloxacin (Floxin 0.3% Otic Soln) 5 drop AU BID@0900,2100 [facility] Last Admin: 02/04/18 08:44 Dose: 5 drop Ondansetron HCl (Zofran Inj) 4 mg IVP Q6 PRN PRN Reason: Nausea/Vomiting Trimethoprim/Sulfamethoxazole (Bactrim Ds Tab) 1 tab PO Q12 [facility] PRN Reason: Protocol Last Admin: 02/04/18 08:43 Dose: 1 tab - Labs Labs: 01/31/18 05:40 01/31/18 05:40 PT 11.8 Seconds (9.8-13.1) 01/25/18 05:30 INR 1.1 01/25/18 05:30 APTT 34.1 Seconds (25.6-37.1) 01/25/18 05:30
--- NOTE | 2018-02-05 04:40 | CP.PCM.PN ---
Subjective - Date & Time of Evaluation Date of Evaluation: 02/04/18 Time of Evaluation: 21:30 Objective - Vital Signs/Intake and Output Vital Signs (last 24 hours): Temp Pulse Resp BP Pulse Ox 98.8 F 78 20 129/62 98 02/04/18 20:09 02/04/18 20:09 02/04/18 20:09 02/04/18 20:09 02/04/18 20:09 - Medications Medications: Current Medications Atorvastatin Calcium (Lipitor) 10 mg PO DAILY [facility] Last Admin: 02/04/18 16:12 Dose: 10 mg Celecoxib (Celebrex) 200 mg PO BID [facility] Last Admin: 02/04/18 16:12 Dose: 200 mg Citalopram Hydrobromide (Celexa) 20 mg PO DAILY [facility] Last Admin: 02/04/18 08:43 Dose: 20 mg Dextrose (Dextrose 50% Inj) 0 ml IV STAT PRN; Protocol PRN Reason: Hypoglycemia Protocol Dextrose (Glutose 15) 0 gm PO ONCE PRN; Protocol PRN Reason: Hypoglycemia Protocol Diphenhydramine HCl (Benadryl) 25 mg IVP Q6 PRN PRN Reason: Itching / Pruritus Last Admin: 01/25/18 20:44 Dose: 25 mg Diphenhydramine HCl (Benadryl) 50 mg PO TID PRN PRN Reason: Itching / Pruritus Last Admin: 02/04/18 21:44 Dose: 50 mg Glucagon (Glucagen Diagnostic Kit) 0 mg IM STAT PRN; Protocol PRN Reason: Hypoglycemia Protocol Home Med (Patient's Own Medication) 1 unit TOP TID [facility] Last Admin: 02/04/18 18:03 Dose: Not Given Hydrocortisone (Anusol-Hc) 1 applic [place] BID [facility] Last Admin: 02/04/18 16:13 Dose: Not Given Aztreonam 1 gm/ Sodium (Chloride) 100 mls @ 100 mls/hr IVPB Q12@0500,1700 [facility] PRN Reason: Protocol Last Admin: 02/04/18 16:08 Dose: 100 mls/hr Ibuprofen (Motrin Tab) 600 mg PO Q6 PRN PRN Reason: Pain, moderate (4-7) Insulin Human Lispro (Humalog) 0 units SC ACCU-CHECK [facility] PRN Reason: Protocol Last Admin: 02/04/18 22:09 Dose: Not Given Lactobacillus Acidophilus (Bacid Acidophilus) 1 cap PO BID [facility] Last Admin: 02/04/18 16:08 Dose: 1 cap Lisinopril (Zestril) 10 mg PO DAILY [facility] Last Admin: 02/04/18 08:44 Dose: 10 mg Loratadine (Claritin) 10 mg PO DAILY [facility] Last Admin: 02/04/18 08:43 Dose: 10 mg Nystatin (Nystop Topical Powder) 1 applic TOP 0900,1200,2100 [facility] Last Admin: 02/04/18 21:44 Dose: 1 appful Ofloxacin (Floxin 0.3% Otic Soln) 5 drop [place] BID@0900,2100 [facility] Last Admin: 02/04/18 21:44 Dose: 5 drop Ondansetron HCl (Zofran Inj) 4 mg IVP Q6 PRN PRN Reason: Nausea/Vomiting Trimethoprim/Sulfamethoxazole (Bactrim Ds Tab) 1 tab PO Q12 [facility] PRN Reason: Protocol Last Admin: 02/04/18 22:07 Dose: 1 tab - Labs Labs: 01/31/18 05:40 01/31/18 05:40 PT 11.8 Seconds (9.8-13.1) 01/25/18 05:30 INR 1.1 01/25/18 05:30 APTT 34.1 Seconds (25.6-37.1) 01/25/18 05:30 Assessment and Plan (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
--- NOTE | 2018-02-05 04:40 | CP.PCM.PN ---
Subjective - Date & Time of Evaluation Date of Evaluation: 02/03/18 Time of Evaluation: 17:25 Objective - Vital Signs/Intake and Output Vital Signs (last 24 hours): Temp Pulse Resp BP Pulse Ox 98.8 F 78 20 129/62 98 02/04/18 20:09 02/04/18 20:09 02/04/18 20:09 02/04/18 20:09 02/04/18 20:09 - Medications Medications: Current Medications Atorvastatin Calcium (Lipitor) 10 mg PO DAILY [facility] Last Admin: 02/04/18 16:12 Dose: 10 mg Celecoxib (Celebrex) 200 mg PO BID [facility] Last Admin: 02/04/18 16:12 Dose: 200 mg Citalopram Hydrobromide (Celexa) 20 mg PO DAILY [facility] Last Admin: 02/04/18 08:43 Dose: 20 mg Dextrose (Dextrose 50% Inj) 0 ml IV STAT PRN; Protocol PRN Reason: Hypoglycemia Protocol Dextrose (Glutose 15) 0 gm PO ONCE PRN; Protocol PRN Reason: Hypoglycemia Protocol Diphenhydramine HCl (Benadryl) 25 mg IVP Q6 PRN PRN Reason: Itching / Pruritus Last Admin: 01/25/18 20:44 Dose: 25 mg Diphenhydramine HCl (Benadryl) 50 mg PO TID PRN PRN Reason: Itching / Pruritus Last Admin: 02/04/18 21:44 Dose: 50 mg Glucagon (Glucagen Diagnostic Kit) 0 mg IM STAT PRN; Protocol PRN Reason: Hypoglycemia Protocol Home Med (Patient's Own Medication) 1 unit TOP TID [facility] Last Admin: 02/04/18 18:03 Dose: Not Given Hydrocortisone (Anusol-Hc) 1 applic [place] BID [facility] Last Admin: 02/04/18 16:13 Dose: Not Given Aztreonam 1 gm/ Sodium (Chloride) 100 mls @ 100 mls/hr IVPB Q12@0500,1700 [facility] PRN Reason: Protocol Last Admin: 02/04/18 16:08 Dose: 100 mls/hr Ibuprofen (Motrin Tab) 600 mg PO Q6 PRN PRN Reason: Pain, moderate (4-7) Insulin Human Lispro (Humalog) 0 units SC ACCU-CHECK [facility] PRN Reason: Protocol Last Admin: 02/04/18 22:09 Dose: Not Given Lactobacillus Acidophilus (Bacid Acidophilus) 1 cap PO BID [facility] Last Admin: 02/04/18 16:08 Dose: 1 cap Lisinopril (Zestril) 10 mg PO DAILY [facility] Last Admin: 02/04/18 08:44 Dose: 10 mg Loratadine (Claritin) 10 mg PO DAILY [facility] Last Admin: 02/04/18 08:43 Dose: 10 mg Nystatin (Nystop Topical Powder) 1 applic TOP 0900,1200,2100 [facility] Last Admin: 02/04/18 21:44 Dose: 1 appful Ofloxacin (Floxin 0.3% Otic Soln) 5 drop [place] BID@0900,2100 [facility] Last Admin: 02/04/18 21:44 Dose: 5 drop Ondansetron HCl (Zofran Inj) 4 mg IVP Q6 PRN PRN Reason: Nausea/Vomiting Trimethoprim/Sulfamethoxazole (Bactrim Ds Tab) 1 tab PO Q12 [facility] PRN Reason: Protocol Last Admin: 02/04/18 22:07 Dose: 1 tab - Labs Labs: 01/31/18 05:40 01/31/18 05:40 PT 11.8 Seconds (9.8-13.1) 01/25/18 05:30 INR 1.1 01/25/18 05:30 APTT 34.1 Seconds (25.6-37.1) 01/25/18 05:30 Assessment and Plan (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
[2018-02-05] MEDS: Aztreonam 1 GM in Sodium Chloride 0.9% 100 ML IVPB SCH ×2 (05:37→16:40)
[2018-02-05] MEDS: Insulin Lispro (humaLOG) 100 Units/ml Inj SC SCH ×4 (06:00→22:03)
[2018-02-05] MEDS: Tmp-Smz 800 mg-160 mg DS Tab PO SCH ×2 (09:08→21:54)
[2018-02-05] MEDS: Lactobacillus Acidophilus 500 MU Cap PO SCH ×2 (09:08→16:40)
[2018-02-05] MEDS: OFLOXACIN 0.3% AU SCH ×2 (09:09→21:54)
[2018-02-05] MEDS: DESONIDE 0.05% TOP SCH ×3 (09:13→16:41)
[2018-02-05] MEDS: Hydrocortisone 2.5% (Rectal) CREAM PR SCH ×2 (09:14→16:41)
--- NOTE | 2018-02-05 13:06 | CP.PCM.PN ---
Subjective - Date & Time of Evaluation Date of Evaluation: 02/05/18 Time of Evaluation: 13:06 - Subjective Subjective: I D NOTE no change in rx no new rash Objective - Vital Signs/Intake and Output Vital Signs (last 24 hours): Temp Pulse Resp BP Pulse Ox 97.8 F 61 20 135/75 98 02/05/18 08:37 02/05/18 09:09 02/05/18 08:37 02/05/18 09:09 02/05/18 08:37 - Medications Medications: Current Medications Atorvastatin Calcium (Lipitor) 10 mg PO DAILY [facility] Last Admin: 02/05/18 09:10 Dose: 10 mg Celecoxib (Celebrex) 200 mg PO BID [facility] Last Admin: 02/05/18 09:10 Dose: 200 mg Citalopram Hydrobromide (Celexa) 20 mg PO DAILY [facility] Last Admin: 02/05/18 09:08 Dose: 20 mg Dextrose (Dextrose 50% Inj) 0 ml IV STAT PRN; Protocol PRN Reason: Hypoglycemia Protocol Dextrose (Glutose 15) 0 gm PO ONCE PRN; Protocol PRN Reason: Hypoglycemia Protocol Diphenhydramine HCl (Benadryl) 25 mg IVP Q6 PRN PRN Reason: Itching / Pruritus Last Admin: 01/25/18 20:44 Dose: 25 mg Diphenhydramine HCl (Benadryl) 50 mg PO TID PRN PRN Reason: Itching / Pruritus Last Admin: 02/04/18 21:44 Dose: 50 mg Glucagon (Glucagen Diagnostic Kit) 0 mg IM STAT PRN; Protocol PRN Reason: Hypoglycemia Protocol Home Med (Patient's Own Medication) 1 unit TOP TID [facility] Last Admin: 02/05/18 13:03 Dose: Not Given Hydrocortisone (Anusol-Hc) 1 applic ND BID [facility] Last Admin: 02/05/18 09:14 Dose: Not Given Aztreonam 1 gm/ Sodium (Chloride) 100 mls @ 100 mls/hr IVPB Q12@0500,1700 [facility] PRN Reason: Protocol Last Admin: 02/05/18 05:37 Dose: 100 mls/hr Ibuprofen (Motrin Tab) 600 mg PO Q6 PRN PRN Reason: Pain, moderate (4-7) Insulin Human Lispro (Humalog) 0 units SC ACCU-CHECK [facility] PRN Reason: Protocol Last Admin: 02/05/18 12:12 Dose: Not Given Lactobacillus Acidophilus (Bacid Acidophilus) 1 cap PO BID [facility] Last Admin: 02/05/18 09:08 Dose: 1 cap Lisinopril (Zestril) 10 mg PO DAILY [facility] Last Admin: 02/05/18 09:09 Dose: 10 mg Loratadine (Claritin) 10 mg PO DAILY [facility] Last Admin: 02/05/18 09:10 Dose: 10 mg Nystatin (Nystop Topical Powder) 1 applic TOP 0900,1200,2100 [facility] Last Admin: 02/05/18 13:03 Dose: Not Given Ofloxacin (Floxin 0.3% Otic Soln) 5 drop AU BID@0900,2100 [facility] Last Admin: 02/05/18 09:09 Dose: 5 drop Ondansetron HCl (Zofran Inj) 4 mg IVP Q6 PRN PRN Reason: Nausea/Vomiting Trimethoprim/Sulfamethoxazole (Bactrim Ds Tab) 1 tab PO Q12 [facility] PRN Reason: Protocol Last Admin: 02/05/18 09:08 Dose: 1 tab - Labs Labs: 01/31/18 05:40 01/31/18 05:40 PT 11.8 Seconds (9.8-13.1) 01/25/18 05:30 INR 1.1 01/25/18 05:30 APTT 34.1 Seconds (25.6-37.1) 01/25/18 05:30
[2018-02-06] MEDS: Aztreonam 1 GM in Sodium Chloride 0.9% 100 ML IVPB SCH ×2 (05:18→16:51)
[2018-02-06] MEDS: Insulin Lispro (humaLOG) 100 Units/ml Inj SC SCH ×4 (06:21→23:34)
[2018-02-06 07:39] LABS: BASO % 0.2 % (0.0-2.0); EOS # 0.6 K/uL (0.0-0.7); EOS % 3.6 % (0.0-4.0); HEMOGLOBIN 14.3 g/dL (12.0-16.0); LYMPH # 6.2 K/uL (1.0-4.3); LYMPH % 38.2 % (20.0-40.0); MEAN CELL VOLUME 92.4 fl (81.0-99.0); MEAN CORPUSCULAR HEMOGLOBIN 30.3 pg (27.0-31.0); MEAN CORPUSCULAR HGB CONC 32.8 g/dL (33.0-37.0); MEAN PLATELET VOLUME 8.5 fl (7.2-11.7); MONO # 1.1 K/uL (0.0-0.8); MONO % 6.8 % (0.0-10.0); NEUT # 8.3 K/uL (1.8-7.0); NEUT % 51.2 % (50.0-75.0); RBC 4.72 Mil/uL (3.80-5.20); RED CELL DISTRIBUTION WIDTH 13.1 % (11.5-14.5); WHITE BLOOD COUNT 16.3 K/uL (4.8-10.8)
[2018-02-06 08:10] LABS: ALB/GLOB RATIO 1.3 (1.0-2.1); ALBUMIN 3.6 g/dL (3.5-5.0); ALT/SGPT 44 U/L (9-52); AST/SGOT 25 U/L (14-36); BLOOD UREA NITROGEN 29 mg/dl (7-17); CALCIUM 8.5 mg/dL (8.4-10.2); GFR AFRICAN-AMERICAN > 60; GFR NON-AFRICAN AMERICAN > 60; HDL CHOLESTEROL 44 MG/DL (30-70)
[2018-02-06 08:20] LABS: LDL CHOLESTEROL 90 mg/dL (0-129)
[2018-02-06] MEDS: DESONIDE 0.05% TOP SCH ×3 (09:18→16:54)
[2018-02-06] MEDS: Tmp-Smz 800 mg-160 mg DS Tab PO SCH ×2 (09:21→20:23)
--- NOTE | 2018-02-06 19:30 | CP.PCM.PN ---
Subjective - Date & Time of Evaluation Date of Evaluation: 02/06/18 Time of Evaluation: 19:30 - Subjective Subjective: I D NOTE NO RASH TODAY NO CHANGE IN COVERAGE Objective - Vital Signs/Intake and Output Vital Signs (last 24 hours): Temp Pulse Resp BP Pulse Ox 98.4 F 101 H 20 130/90 99 02/06/18 15:45 02/06/18 15:45 02/06/18 15:45 02/06/18 15:45 02/06/18 15:45 Intake and Output: 02/06/18 02/07/18 18:59 06:59 Intake Total 150 Balance 150 - Medications Medications: Current Medications Atorvastatin Calcium (Lipitor) 10 mg PO DAILY [facility] Last Admin: 02/06/18 09:22 Dose: 10 mg Celecoxib (Celebrex) 200 mg PO BID [facility] Last Admin: 02/06/18 16:53 Dose: 200 mg Citalopram Hydrobromide (Celexa) 20 mg PO DAILY [facility] Last Admin: 02/06/18 09:21 Dose: 20 mg Dextrose (Dextrose 50% Inj) 0 ml IV STAT PRN; Protocol PRN Reason: Hypoglycemia Protocol Dextrose (Glutose 15) 0 gm PO ONCE PRN; Protocol PRN Reason: Hypoglycemia Protocol Diphenhydramine HCl (Benadryl) 25 mg IVP Q6 PRN PRN Reason: Itching / Pruritus Last Admin: 01/25/18 20:44 Dose: 25 mg Diphenhydramine HCl (Benadryl) 50 mg PO TID PRN PRN Reason: Itching / Pruritus Last Admin: 02/05/18 21:55 Dose: 50 mg Glucagon (Glucagen Diagnostic Kit) 0 mg IM STAT PRN; Protocol PRN Reason: Hypoglycemia Protocol Home Med (Patient's Own Medication) 1 unit TOP TID [facility] Last Admin: 02/06/18 16:54 Dose: Not Given Hydrocortisone (Anusol-Hc) 1 applic [place] PRN PRN PRN Reason: Hemorrhoids Aztreonam 1 gm/ Sodium (Chloride) 100 mls @ 100 mls/hr IVPB Q12@0500,1700 [facility] PRN Reason: Protocol Last Admin: 02/06/18 16:51 Dose: 100 mls/hr Ibuprofen (Motrin Tab) 600 mg PO Q6 PRN PRN Reason: Pain, moderate (4-7) Insulin Human Lispro (Humalog) 0 units SC ACCU-CHECK [facility] PRN Reason: Protocol Last Admin: 02/06/18 16:52 Dose: Not Given Lisinopril (Zestril) 10 mg PO DAILY [facility] Last Admin: 02/06/18 09:21 Dose: 10 mg Loratadine (Claritin) 10 mg PO DAILY [facility] Last Admin: 02/06/18 09:22 Dose: 10 mg Nystatin (Nystop Topical Powder) 1 applic TOP 0900,1200,2100 [facility] Last Admin: 02/06/18 12:53 Dose: Not Given Ondansetron HCl (Zofran Inj) 4 mg IVP Q6 PRN PRN Reason: Nausea/Vomiting Trimethoprim/Sulfamethoxazole (Bactrim Ds Tab) 1 tab PO Q12 [facility] PRN Reason: Protocol Last Admin: 02/06/18 09:21 Dose: 1 tab - Labs Labs: 02/06/18 07:00 02/06/18 07:00 PT 11.8 Seconds (9.8-13.1) 01/25/18 05:30 INR 1.1 01/25/18 05:30 APTT 34.1 Seconds (25.6-37.1) 01/25/18 05:30
[2018-02-07] MEDS: Aztreonam 1 GM in Sodium Chloride 0.9% 100 ML IVPB SCH ×2 (04:51→16:17)
[2018-02-07] MEDS: Insulin Lispro (humaLOG) 100 Units/ml Inj SC SCH ×4 (06:46→22:05)
[2018-02-07] MEDS: DESONIDE 0.05% TOP SCH ×3 (08:11→16:17)
[2018-02-07] MEDS: Tmp-Smz 800 mg-160 mg DS Tab PO SCH (08:11)
--- NOTE | 2018-02-07 19:15 | CP.PCM.PN ---
Subjective - Date & Time of Evaluation Date of Evaluation: 02/07/18 Time of Evaluation: 19:21 - Subjective Subjective: I D NOTE CONTINUES TO BE STABLE NO RASH AFEBRILE WILL NEED TOTAL 4 WEEKS IV ANTIBIOTICS c 2 weeks PO BACTRIM POSSIBLY LONGER PENDING F/U SCAN Objective - Vital Signs/Intake and Output Vital Signs (last 24 hours): Temp Pulse Resp BP Pulse Ox 98.1 F 98 H 20 128/65 99 02/07/18 15:45 02/07/18 15:45 02/07/18 15:45 02/07/18 15:45 02/07/18 15:45 - Medications Medications: Current Medications Atorvastatin Calcium (Lipitor) 10 mg PO HS [facility] Celecoxib (Celebrex) 200 mg PO BID [facility] Last Admin: 02/07/18 16:18 Dose: 200 mg Citalopram Hydrobromide (Celexa) 20 mg PO DAILY [facility] Last Admin: 02/07/18 08:12 Dose: 20 mg Dextrose (Dextrose 50% Inj) 0 ml IV STAT PRN; Protocol PRN Reason: Hypoglycemia Protocol Dextrose (Glutose 15) 0 gm PO ONCE PRN; Protocol PRN Reason: Hypoglycemia Protocol Diphenhydramine HCl (Benadryl) 25 mg IVP Q6 PRN PRN Reason: Itching / Pruritus Last Admin: 01/25/18 20:44 Dose: 25 mg Diphenhydramine HCl (Benadryl) 50 mg PO TID PRN PRN Reason: Itching / Pruritus Last Admin: 02/06/18 20:23 Dose: 50 mg Glucagon (Glucagen Diagnostic Kit) 0 mg IM STAT PRN; Protocol PRN Reason: Hypoglycemia Protocol Home Med (Patient's Own Medication) 1 unit TOP TID [facility] Last Admin: 02/07/18 16:17 Dose: Not Given Hydrocortisone (Anusol-Hc) 1 applic [place] PRN PRN PRN Reason: Hemorrhoids Aztreonam 1 gm/ Sodium (Chloride) 100 mls @ 100 mls/hr IVPB Q12@0500,1700 [facility] PRN Reason: Protocol Last Admin: 02/07/18 16:17 Dose: 100 mls/hr Ibuprofen (Motrin Tab) 600 mg PO Q6 PRN PRN Reason: Pain, moderate (4-7) Insulin Human Lispro (Humalog) 0 units SC ACCU-CHECK [facility] PRN Reason: Protocol Last Admin: 02/07/18 16:16 Dose: Not Given Lisinopril (Zestril) 10 mg PO DAILY [facility] Last Admin: 02/07/18 08:12 Dose: 10 mg Loratadine (Claritin) 10 mg PO DAILY [facility] Last Admin: 02/07/18 08:12 Dose: 10 mg Nystatin (Nystop Topical Powder) 1 applic TOP 0900,1200,2100 [facility] Last Admin: 02/07/18 11:07 Dose: Not Given Ondansetron HCl (Zofran Inj) 4 mg IVP Q6 PRN PRN Reason: Nausea/Vomiting - Labs Labs: 02/06/18 07:00 02/06/18 07:00 PT 11.8 Seconds (9.8-13.1) 01/25/18 05:30 INR 1.1 01/25/18 05:30 APTT 34.1 Seconds (25.6-37.1) 01/25/18 05:30
[2018-02-07] MEDS: Hydrocortisone 2.5% (Rectal) CREAM PR PRN (21:59)
[2018-02-08] MEDS ORDERED: Alum-Mag Hydrox-Simethicone Susp (30 mL) PO ONE (00:24)
[2018-02-08] MEDS: Aztreonam 1 GM in Sodium Chloride 0.9% 100 ML IVPB SCH ×2 (05:41→17:07)
[2018-02-08] MEDS: Insulin Lispro (humaLOG) 100 Units/ml Inj SC SCH ×4 (06:59→22:02)
--- NOTE | 2018-02-08 07:27 | CP.PCM.PN ---
Subjective - Date & Time of Evaluation Date of Evaluation: 02/06/18 Time of Evaluation: 11:00 - Subjective Subjective: patient remains stable Noted elevated WBC Has no fever Objective - Vital Signs/Intake and Output Vital Signs (last 24 hours): Temp Pulse Resp BP Pulse Ox 98.1 F 108 H 20 142/69 97 02/07/18 20:06 02/07/18 20:06 02/07/18 20:06 02/07/18 20:06 02/07/18 20:06 - Medications Medications: Current Medications Atorvastatin Calcium (Lipitor) 10 mg PO HS [facility] Last Admin: 02/07/18 21:58 Dose: 10 mg Celecoxib (Celebrex) 200 mg PO BID [facility] Last Admin: 02/07/18 16:18 Dose: 200 mg Citalopram Hydrobromide (Celexa) 20 mg PO DAILY [facility] Last Admin: 02/07/18 08:12 Dose: 20 mg Dextrose (Dextrose 50% Inj) 0 ml IV STAT PRN; Protocol PRN Reason: Hypoglycemia Protocol Dextrose (Glutose 15) 0 gm PO ONCE PRN; Protocol PRN Reason: Hypoglycemia Protocol Diphenhydramine HCl (Benadryl) 25 mg IVP Q6 PRN PRN Reason: Itching / Pruritus Last Admin: 01/25/18 20:44 Dose: 25 mg Diphenhydramine HCl (Benadryl) 50 mg PO TID PRN PRN Reason: Itching / Pruritus Last Admin: 02/07/18 21:57 Dose: 50 mg Glucagon (Glucagen Diagnostic Kit) 0 mg IM STAT PRN; Protocol PRN Reason: Hypoglycemia Protocol Home Med (Patient's Own Medication) 1 unit TOP TID [facility] Last Admin: 02/07/18 16:17 Dose: Not Given Hydrocortisone (Anusol-Hc) 1 applic [place] PRN PRN PRN Reason: Hemorrhoids Last Admin: 02/07/18 21:59 Dose: 1 applic Aztreonam 1 gm/ Sodium (Chloride) 100 mls @ 100 mls/hr IVPB Q12@0500,1700 [facility] PRN Reason: Protocol Last Admin: 02/08/18 05:41 Dose: 100 mls/hr Ibuprofen (Motrin Tab) 600 mg PO Q6 PRN PRN Reason: Pain, moderate (4-7) Insulin Human Lispro (Humalog) 0 units SC ACCU-CHECK [facility] PRN Reason: Protocol Last Admin: 02/08/18 06:59 Dose: Not Given Lisinopril (Zestril) 10 mg PO DAILY [facility] Last Admin: 02/07/18 08:12 Dose: 10 mg Loratadine (Claritin) 10 mg PO DAILY [facility] Last Admin: 02/07/18 08:12 Dose: 10 mg Nystatin (Nystop Topical Powder) 1 applic TOP 0900,1200,2100 [facility] Last Admin: 02/07/18 21:58 Dose: Not Given Ondansetron HCl (Zofran Inj) 4 mg IVP Q6 PRN PRN Reason: Nausea/Vomiting - Labs Labs: 02/06/18 07:00 02/06/18 07:00 PT 11.8 Seconds (9.8-13.1) 01/25/18 05:30 INR 1.1 01/25/18 05:30 APTT 34.1 Seconds (25.6-37.1) 01/25/18 05:30 - Head Exam Head Exam: NORMAL INSPECTION - Eye Exam Eye Exam: Normal appearance - ENT Exam ENT Exam: Mucous Membranes Moist - Respiratory Exam Respiratory Exam: Clear to Ausculation Bilateral - Cardiovascular Exam Cardiovascular Exam: REGULAR RHYTHM Assessment and Plan (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 (2) Hypertension Status: Chronic - Assessment and Plan (Free Text) Plan: Cont meds Cont IV antibiotics check labs
--- NOTE | 2018-02-08 07:29 | CP.PCM.PN ---
Subjective - Date & Time of Evaluation Date of Evaluation: 02/07/18 Time of Evaluation: 10:40 - Subjective Subjective: Patient remains stable Will need few more days of iv antibiotics Has no fever. Objective - Vital Signs/Intake and Output Vital Signs (last 24 hours): Temp Pulse Resp BP Pulse Ox 98.1 F 108 H 20 142/69 97 02/07/18 20:06 02/07/18 20:06 02/07/18 20:06 02/07/18 20:06 02/07/18 20:06 - Medications Medications: Current Medications Atorvastatin Calcium (Lipitor) 10 mg PO HS [facility] Last Admin: 02/07/18 21:58 Dose: 10 mg Celecoxib (Celebrex) 200 mg PO BID [facility] Last Admin: 02/07/18 16:18 Dose: 200 mg Citalopram Hydrobromide (Celexa) 20 mg PO DAILY [facility] Last Admin: 02/07/18 08:12 Dose: 20 mg Dextrose (Dextrose 50% Inj) 0 ml IV STAT PRN; Protocol PRN Reason: Hypoglycemia Protocol Dextrose (Glutose 15) 0 gm PO ONCE PRN; Protocol PRN Reason: Hypoglycemia Protocol Diphenhydramine HCl (Benadryl) 25 mg IVP Q6 PRN PRN Reason: Itching / Pruritus Last Admin: 01/25/18 20:44 Dose: 25 mg Diphenhydramine HCl (Benadryl) 50 mg PO TID PRN PRN Reason: Itching / Pruritus Last Admin: 02/07/18 21:57 Dose: 50 mg Glucagon (Glucagen Diagnostic Kit) 0 mg IM STAT PRN; Protocol PRN Reason: Hypoglycemia Protocol Home Med (Patient's Own Medication) 1 unit TOP TID [facility] Last Admin: 02/07/18 16:17 Dose: Not Given Hydrocortisone (Anusol-Hc) 1 applic [place] PRN PRN PRN Reason: Hemorrhoids Last Admin: 02/07/18 21:59 Dose: 1 applic Aztreonam 1 gm/ Sodium (Chloride) 100 mls @ 100 mls/hr IVPB Q12@0500,1700 [facility] PRN Reason: Protocol Last Admin: 02/08/18 05:41 Dose: 100 mls/hr Ibuprofen (Motrin Tab) 600 mg PO Q6 PRN PRN Reason: Pain, moderate (4-7) Insulin Human Lispro (Humalog) 0 units SC ACCU-CHECK [facility] PRN Reason: Protocol Last Admin: 02/08/18 06:59 Dose: Not Given Lisinopril (Zestril) 10 mg PO DAILY [facility] Last Admin: 02/07/18 08:12 Dose: 10 mg Loratadine (Claritin) 10 mg PO DAILY [facility] Last Admin: 02/07/18 08:12 Dose: 10 mg Nystatin (Nystop Topical Powder) 1 applic TOP 0900,1200,2100 [facility] Last Admin: 02/07/18 21:58 Dose: Not Given Ondansetron HCl (Zofran Inj) 4 mg IVP Q6 PRN PRN Reason: Nausea/Vomiting - Labs Labs: 02/06/18 07:00 02/06/18 07:00 PT 11.8 Seconds (9.8-13.1) 01/25/18 05:30 INR 1.1 01/25/18 05:30 APTT 34.1 Seconds (25.6-37.1) 01/25/18 05:30 - Head Exam Head Exam: NORMAL INSPECTION - Eye Exam Eye Exam: Normal appearance - ENT Exam ENT Exam: Mucous Membranes Moist - Respiratory Exam Respiratory Exam: Clear to Ausculation Bilateral - Cardiovascular Exam Cardiovascular Exam: REGULAR RHYTHM - GI/Abdominal Exam GI & Abdominal Exam: Soft - Neurological Exam Neurological Exam: Awake, Oriented x3 - Psychiatric Exam Psychiatric exam: Normal Mood Assessment and Plan (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 (2) Hypertension Status: Chronic - Assessment and Plan (Free Text) Plan: Cont meds Cont tx Cont IV antibiotics
[2018-02-08] MEDS: Lactobacillus Acidophilus 500 MU Cap PO SCH ×2 (10:23→17:08)
[2018-02-08] MEDS: Hydrocortisone 2.5% (Rectal) CREAM PR PRN ×2 (10:23→21:31)
--- NOTE | 2018-02-08 17:35 | CP.PCM.PN ---
Subjective - Date & Time of Evaluation Date of Evaluation: 02/08/18 Time of Evaluation: 17:34 - Subjective Subjective: I D NOTE PRESCRIPTIONS WRITTEN FOR HOME CARE Objective - Vital Signs/Intake and Output Vital Signs (last 24 hours): Temp Pulse Resp BP Pulse Ox 98.2 F 86 20 130/102 H 98 02/08/18 08:07 02/08/18 08:21 02/08/18 08:07 02/08/18 08:21 02/08/18 08:07 - Medications Medications: Current Medications Atorvastatin Calcium (Lipitor) 10 mg PO [facility] Last Admin: 02/07/18 21:58 Dose: 10 mg Celecoxib (Celebrex) 200 mg PO BID [facility] Last Admin: 02/08/18 17:09 Dose: 200 mg Citalopram Hydrobromide (Celexa) 20 mg PO DAILY [facility] Last Admin: 02/08/18 08:21 Dose: 20 mg Clotrimazole (Lotrimin 1% Vaginal) 1 applic VG [facility] Stop: 02/14/18 22:01 Dextrose (Dextrose 50% Inj) 0 ml IV STAT PRN; Protocol PRN Reason: Hypoglycemia Protocol Dextrose (Glutose 15) 0 gm PO ONCE PRN; Protocol PRN Reason: Hypoglycemia Protocol Diphenhydramine HCl (Benadryl) 25 mg IVP Q6 PRN PRN Reason: Itching / Pruritus Last Admin: 01/25/18 20:44 Dose: 25 mg Diphenhydramine HCl (Benadryl) 50 mg PO TID PRN PRN Reason: Itching / Pruritus Last Admin: 02/07/18 21:57 Dose: 50 mg Glucagon (Glucagen Diagnostic Kit) 0 mg IM STAT PRN; Protocol PRN Reason: Hypoglycemia Protocol Home Med (Patient's Own Medication) 1 unit TOP TID PRN PRN Reason: Dry skin Hydrocortisone (Anusol-Hc) 1 applic [place] PRN PRN PRN Reason: Hemorrhoids Last Admin: 02/08/18 10:23 Dose: 1 applic Aztreonam 1 gm/ Sodium (Chloride) 100 mls @ 100 mls/hr IVPB Q12@0500,1700 [facility] PRN Reason: Protocol Last Admin: 02/08/18 17:07 Dose: 100 mls/hr Ibuprofen (Motrin Tab) 600 mg PO Q6 PRN PRN Reason: Pain, moderate (4-7) Insulin Human Lispro (Humalog) 0 units SC ACCU-CHECK [facility] PRN Reason: Protocol Last Admin: 02/08/18 17:08 Dose: Not Given Lactobacillus Acidophilus (Bacid Acidophilus) 1 cap PO BID [facility] Last Admin: 02/08/18 17:08 Dose: 1 cap Lisinopril (Zestril) 10 mg PO DAILY [facility] Last Admin: 02/08/18 08:21 Dose: 10 mg Loratadine (Claritin) 10 mg PO DAILY [facility] Last Admin: 02/08/18 08:21 Dose: 10 mg Ondansetron HCl (Zofran Inj) 4 mg IVP Q6 PRN PRN Reason: Nausea/Vomiting - Labs Labs: 02/06/18 07:00 02/06/18 07:00 PT 11.8 Seconds (9.8-13.1) 01/25/18 05:30 INR 1.1 01/25/18 05:30 APTT 34.1 Seconds (25.6-37.1) 01/25/18 05:30
--- NOTE | 2018-02-08 19:22 | CP.PCM.PN ---
Subjective - Date & Time of Evaluation Date of Evaluation: 02/08/18 Time of Evaluation: 18:15 Objective - Vital Signs/Intake and Output Vital Signs (last 24 hours): Temp Pulse Resp BP Pulse Ox 98.2 F 108 H 20 134/77 98 02/08/18 17:56 02/08/18 17:56 02/08/18 17:56 02/08/18 17:56 02/08/18 17:56 - Medications Medications: Current Medications Atorvastatin Calcium (Lipitor) 10 mg PO [facility] Last Admin: 02/07/18 21:58 Dose: 10 mg Celecoxib (Celebrex) 200 mg PO BID [facility] Last Admin: 02/08/18 17:09 Dose: 200 mg Citalopram Hydrobromide (Celexa) 20 mg PO DAILY [facility] Last Admin: 02/08/18 08:21 Dose: 20 mg Clotrimazole (Lotrimin 1% Vaginal) 1 applic VG [facility] Stop: 02/14/18 22:01 Dextrose (Dextrose 50% Inj) 0 ml IV STAT PRN; Protocol PRN Reason: Hypoglycemia Protocol Dextrose (Glutose 15) 0 gm PO ONCE PRN; Protocol PRN Reason: Hypoglycemia Protocol Diphenhydramine HCl (Benadryl) 25 mg IVP Q6 PRN PRN Reason: Itching / Pruritus Last Admin: 01/25/18 20:44 Dose: 25 mg Diphenhydramine HCl (Benadryl) 50 mg PO TID PRN PRN Reason: Itching / Pruritus Last Admin: 02/07/18 21:57 Dose: 50 mg Glucagon (Glucagen Diagnostic Kit) 0 mg IM STAT PRN; Protocol PRN Reason: Hypoglycemia Protocol Home Med (Patient's Own Medication) 1 unit TOP TID PRN PRN Reason: Dry skin Hydrocortisone (Anusol-Hc) 1 applic [place] PRN PRN PRN Reason: Hemorrhoids Last Admin: 02/08/18 10:23 Dose: 1 applic Aztreonam 1 gm/ Sodium (Chloride) 100 mls @ 100 mls/hr IVPB Q12@0500,1700 [facility] PRN Reason: Protocol Last Admin: 02/08/18 17:07 Dose: 100 mls/hr Ibuprofen (Motrin Tab) 600 mg PO Q6 PRN PRN Reason: Pain, moderate (4-7) Insulin Human Lispro (Humalog) 0 units SC ACCU-CHECK [facility] PRN Reason: Protocol Last Admin: 02/08/18 17:08 Dose: Not Given Lactobacillus Acidophilus (Bacid Acidophilus) 1 cap PO BID [facility] Last Admin: 02/08/18 17:08 Dose: 1 cap Lisinopril (Zestril) 10 mg PO DAILY [facility] Last Admin: 02/08/18 08:21 Dose: 10 mg Loratadine (Claritin) 10 mg PO DAILY [facility] Last Admin: 02/08/18 08:21 Dose: 10 mg Ondansetron HCl (Zofran Inj) 4 mg IVP Q6 PRN PRN Reason: Nausea/Vomiting - Labs Labs: 02/06/18 07:00 02/06/18 07:00 PT 11.8 Seconds (9.8-13.1) 01/25/18 05:30 INR 1.1 01/25/18 05:30 APTT 34.1 Seconds (25.6-37.1) 01/25/18 05:30 Assessment and Plan (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
[2018-02-09] MEDS: Aztreonam 1 GM in Sodium Chloride 0.9% 100 ML IVPB SCH ×2 (04:40→16:55)
[2018-02-09] MEDS: Insulin Lispro (humaLOG) 100 Units/ml Inj SC SCH ×3 (06:01→17:41)
[2018-02-09 08:06] VITALS: O2SAT 98
[2018-02-09] MEDS: Lactobacillus Acidophilus 500 MU Cap PO SCH ×2 (09:15→16:56)
[2018-02-09 15:39] VITALS: BP 126/78; PULSE 100; TEMP 99
--- NOTE | 2018-02-10 04:54 | CP.PCM.DIS ---
Provider - Provider Date of Admission: 01/20/18 22:20 Attending physician: Ras Lott MD Time Spent in preparation of Discharge (in minutes): 35 Diagnosis - Discharge Diagnosis (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 Priority: High Hospital Course - Lab Results Lab Results: Most Recent Lab Values WBC 16.3 K/uL (4.8-10.8) H 02/06/18 07:00 RBC 4.72 Mil/uL (3.80-5.20) 02/06/18 07:00 Hgb 14.3 g/dL (12.0-16.0) 02/06/18 07:00 Hct 43.6 % (34.0-47.0) 02/06/18 07:00 MCV 92.4 fl (81.0-99.0) 02/06/18 07:00 MCH 30.3 pg (27.0-31.0) 02/06/18 07:00 MCHC 32.8 g/dL (33.0-37.0) L 02/06/18 07:00 RDW 13.1 % (11.5-14.5) 02/06/18 07:00 Plt Count 328 K/uL (130-400) 02/06/18 07:00 MPV 8.5 fl (7.2-11.7) 02/06/18 07:00 Neut % (Auto) 51.2 % (50.0-75.0) 02/06/18 07:00 Lymph % (Auto) 38.2 % (20.0-40.0) 02/06/18 07:00 Mckenzie % (Auto) 6.8 % (0.0-10.0) 02/06/18 07:00 Eos % (Auto) 3.6 % (0.0-4.0) 02/06/18 07:00 Baso % (Auto) 0.2 % (0.0-2.0) 02/06/18 07:00 Neut # (Auto) 8.3 K/uL (1.8-7.0) H 02/06/18 07:00 Lymph # (Auto) 6.2 K/uL (1.0-4.3) H 02/06/18 07:00 Mckenzie # (Auto) 1.1 K/uL (0.0-0.8) H 02/06/18 07:00 Eos # (Auto) 0.6 K/uL (0.0-0.7) 02/06/18 07:00 Baso # (Auto) 0.0 K/uL (0.0-0.2) 02/06/18 07:00 PT 11.8 Seconds (9.8-13.1) 01/25/18 05:30 INR 1.1 01/25/18 05:30 APTT 34.1 Seconds (25.6-37.1) 01/25/18 05:30 Sodium 138 mmol/l (132-148) 02/06/18 07:00 Potassium 4.7 MMOL/L (3.6-5.0) 02/06/18 07:00 Chloride 105 mmol/L (98-107) 02/06/18 07:00 Carbon Dioxide 22 mmol/L (22-30) 02/06/18 07:00 Anion Gap 16 (10-20) 02/06/18 07:00 BUN 29 mg/dl (7-17) H 02/06/18 07:00 Creatinine 0.7 mg/dl (0.7-1.2) 02/06/18 07:00 Est GFR ( Amer) > 60 02/06/18 07:00 Est GFR (Non-Af Amer) > 60 02/06/18 07:00 POC Glucose (mg/dL) 145 mg/dL (65-110) H 02/09/18 16:11 Random Glucose 75 mg/dL (65-105) 02/06/18 07:00 Hemoglobin A1c 6.5 % (4.2-6.5) 02/06/18 07:00 Calcium 8.5 mg/dL (8.4-10.2) 02/06/18 07:00 Phosphorus 4.0 mg/dl (2.5-4.5) 01/25/18 05:30 Magnesium 2.1 MG/DL (1.6-2.3) 01/25/18 05:30 Total Bilirubin 0.5 mg/dl (0.2-1.3) 02/06/18 07:00 AST 25 U/L (14-36) 02/06/18 07:00 ALT 44 U/L (9-52) 02/06/18 07:00 Alkaline Phosphatase 66 U/L (38-126) 02/06/18 07:00 Total Protein 6.3 G/DL (6.3-8.2) 02/06/18 07:00 Albumin 3.6 g/dL (3.5-5.0) 02/06/18 07:00 Globulin 2.7 gm/dL (2.2-3.9) 02/06/18 07:00 Albumin/Globulin Ratio 1.3 (1.0-2.1) 02/06/18 07:00 Triglycerides 490 mg/DL (0-149) H 02/06/18 07:00 Cholesterol 210 mg/dL (0-199) H 02/06/18 07:00 LDL Cholesterol Direct 90 mg/dL (0-129) 02/06/18 07:00 HDL Cholesterol 44 MG/DL (30-70) 02/06/18 07:00 Urine Eosinophils Negative (NEGATIVE) 02/01/18 11:34 IgM 95.4 mg/dL (40.0-230.0) 02/01/18 05:45 IgE 343 kU/L (<ek=968) H 02/01/18 05:45 Complement C3 112.0 mg/dL (88.0-165.0) 02/01/18 05:45 Complement C4 28.8 mg/dL (14.0-44.0) 01/31/18 19:11 Tot Complement (CH50) >60 U/mL (31-60) H 02/01/18 06:44 Discharge Exam - Head Exam Head Exam: NORMAL INSPECTION Discharge Plan - Follow Up Plan Condition: GOOD Disposition: HOME/ ROUTINE Instructions: Mastoiditis (DC), Peripherally-Inserted Central Catheter (DC), Sulfamethoxazole and Trimethoprim, Aztreonam (Systemic)
== END 2018-02-09 18:55 | disposition home or self-care (01) | DRG 155 ==
LOC: H.TCU 22:20
PROVIDERS: ADMIT Internal Medicine; ATTEND Internal Medicine
DX: H60.22 Malignant otitis externa, left ear (principal); H70.009 Acute mastoiditis without complications, unspecified ear; E11.65 Type 2 diabetes mellitus with hyperglycemia; R21 Rash and other nonspecific skin eruption; I10 Essential (primary) hypertension; E78.00 Pure hypercholesterolemia, unspecified; H91.90 Unspecified hearing loss, unspecified ear; Z88.1 Allergy status to other antibiotic agents

== ENCOUNTER 2018-01-26 11:06 | Day surgery (SDC) | payer MEDICARE, OTHER ==
[2018-01-25 12:37] VITALS: BMI 31.2
[~2018-01-26 11:06] MED LIST: Lidocaine Hydrochloride 0 ML INJ ONE
[2018-01-26] MEDS ORDERED: Lidocaine Hydrochloride 5 ML INJ ONE (12:27)
[2018-01-26 12:30] VITALS: RESP 18
--- NOTE | 2018-01-26 12:40 | CP.SDSHP ---
Same Day Surgery H & P - History Proposed Procedure: PICC Pre-Op Diagnosis: Oititis media - Allergies Allergies: Allergies cefprozil [From Cefzil] Allergy (Verified 01/25/18 12:35) VOMITING streptomycin Allergy (Verified 01/25/18 12:35) RASH - Physical Exam Vital Signs: Vital Signs 01/26/18 01/26/18 11:45 12:29 Temperature 98.8 F 98.1 F Pulse Rate 75 78 Respiratory 20 18 Rate Blood Pressure 146/72 160/77 H O2 Sat by Pulse 18 L Oximetry Mental Status: Alert & Oriented x3 - Impression Impression: Pt with ear infection requiring mcfp IV abx. Plan right arm picc placement. Pt. Evaluated Today:Candidate for Anesthesia & Procedure: No Short Stay Discharge - Short Stay Discharge Admitting Diagnosis/Reason for Visit: PENITENTIARY ABX TREATMENT Disposition: REHAB FACILITY/REHAB UNIT Referrals: FAMILY PROVIDER,NO [Primary Care Provider] -
--- NOTE | 2018-01-26 12:41 | PCM.SURG1 ---
Surgeon's Initial Post Op Note - Surgeon's Notes Surgeon: Matias Alejo MD Reinforcement Maker: NONE Type of Anesthesia: Local Pre-Operative Diagnosis: Ear infection Operative Findings: US showed a patent right basilic vein Post-Operative Diagnosis: Ear infection Operation Performed: Single lumen picc placement right arm, 35 cm. Tip is in the SVC. Specimen/Specimens Removed: NONE Estimated Blood Loss: EBL {In ML}: 2 Blood Products Given: N/A Drains Used: No Drains Post-Op Condition: Good Date of Surgery/Procedure: 01/26/18 Time of Surgery/Procedure: 12:40
--- NOTE | 2018-01-26 12:49 | VASCULAR ---
PROCEDURE: Date of procedure: 01/26/2018 Procedure: 1. Placement of a right arm PICC with ultrasound and fluoroscopic guidance, CPT 73782 2. PICC tip confirmation with spot radiograph and is in the superior vena cava Medications: 3 cc 1 percent lidocaine Total Fluoro time: 1.4 seconds Radiation: 0.21 MGy EBL: 2 cc HISTORY: Infection requiring long-term IV antibiotics TECHNIQUE: Following informed consent and procedure time-out, the patient was placed supine on the interventional table and the right arm prepped and draped in the usual sterile fashion. Ultrasound showed a patent and compressible right basilic vein. After the skin was anesthetized with lidocaine, the basilic vein was accessed with micro micropuncture technique using ultrasound guidance. A guidewire was then advanced under fluoroscopic guidance into the superior vena cava. An image documenting ultrasound guidance for vascular access was permanently saved. The length of the single-lumen 4 [place] PICC was trimmed to 35 centimeters and advanced through a peel-away sheath. The PICC was position with tip of PICC confirm a spot radiograph the superior vena cava. The PICC was secured to the patient's skin. The PICC was flushed. A biopatch and sterile dressing was applied. IMPRESSION: Placement of a single-lumen 4 [place] PICC trimmed to 35 centimeters via right basilic vein. The tip of the PICC is confirmed with spot radiograph and is in the superior vena cava.
[2018-01-26 14:27] VITALS: BP 161/83; PULSE 66; TEMP 98.7; O2SAT 98
== END 2018-01-26 15:00 ==
LOC: H.OPSURG 11:06
PROVIDERS: ATTEND Internal Medicine
DX: H66.90 Otitis media, unspecified, unspecified ear (principal); Z79.2 Long term (current) use of antibiotics
CPT/HCPCS: 36569; 76937; 77001; A4310; C1751